=== PATIENT | female | born 1985 | race Asian ===

== ENCOUNTER 2024-08-26 00:08 | Inpatient (IN) ==
[2024-08-26] MEDS ORDERED: OXYTOCIN 30 UNITS/NSS 30 UNITS/500 ML BAG IV PRN (01:01)
[2024-08-26] MEDS ORDERED: LIDOCAINE 1% LOCAL 20 ML VIAL INFIL PRN (01:01)
--- NOTE | 2024-08-26 01:05 | History & Physical Report ---
Date of Service August 26, 2024 Assessment & Plan (1) Elderly primigravida: Plan: Admit to L&D. EFM/toco, labs. Will start pitocin to achieve labor pattern of contractions. She is planning for epidural. History of Present Illness Chief Complaint: ruptured membranes Primary Care Provider: Charly Vernon 38yo @ 40 12/20, came to L&D after rupture of membranes around 11pm. Scant blood. + movement. Occasional contractions. AMA Weekly NST's @ 36 weeks Low Lying Placenta *Re-assess at 32wks * resolved at 32 weeks Staphylococcus on GBS culture-treat with Cephalexin Allergies Allergy/AdvReac Type Severity Reaction Status Date / Time No Known Allergies Allergy Verified 08/22/24 14:32 Home Medications Medication Instructions Recorded Confirmed Type triamcinolone acetonide 0.1 % 1 applic topical BID 10/16/23 08/22/24 History topical cream famotidine [Pepcid] PO 01/08/24 08/22/24 History hydrocortisone topical PRN eczema 01/08/24 08/22/24 History 21-iron fu-folic acid PO 01/08/24 08/22/24 History [ Complete] pyridoxine (vitamin B6) PO 01/15/24 08/22/24 History aspirin 81 mg tablet,delayed 81 mg PO DAILY #60 tabs 02/12/24 08/26/24 Rx release (Darren Low Dose Aspirin) cephalexin 250 mg capsule 250 mg PO QID 5 days #20 caps 08/05/24 08/22/24 Rx vits no.124-ferrous fum 1 tab PO DAILY 08/26/24 08/26/24 History 27 mg iron-folic acid 800 mcg tablet ( Vitamin) Patient History Medical History Acid reflux Dermatitis Surgical History H/O wisdom tooth extraction Family History (Updated 01/08/24 @ 14:13 by Porsche Cao) Mother Pre-diabetes Denies family history of Ovarian cancer Prostate cancer Myocardial infarction Breast cancer Colorectal cancer Social History (Updated 01/08/24 @ 14:14 by Porsche Cao) Smoking Status: Never smoker Second Hand Exposure: No; Do You Dip or Chew Tobacco: No; Hx Alcohol Use: No Hx Substance Use: No Preferred Language: Citizen Of [place] Communication Ability: Effective Advertising Campaign Manager Required: No Beliefs That Will Affect Care: None marital status: marital status details: Sammi (38) [phone] Current Living Situation: Spouse Current Living Situation Comment: lives with spouse, cats-spouse changing litter current occupational status: employed current occupation: professor [employer] How many Children do You have: 0 Other Information That Helps Us Care for You: No Feels Safe at Home: Yes Safety Concerns: Feels Safe At This Time Childhood Exposure to Second-Hand Smoke: Yes Diet: lactose free caffeine: Yes Dental Care, Regularly: Yes Physical Activity Frequency: 1-2 Times per Week Seatbelt Use: always Sunscreen Use: Yes Review of Systems All systems reviewed & are unremarkable except as noted in HPI & below Physical Exam Physical Exam: T Cat 1 [place] irreg SVE 150/-2 Constitutional: WD/WN, vitals as above Respiratory: normal respiratory effort, lungs clear to auscultation no respiratory distress Cardiovascular: Rate/Rhythm: regular rate and regular rhythm Gastrointestinal (Abdomen): Inspection/Auscultation: abdomen normal to inspection Percussion/Palpation: abdomen soft; abdomen nontender Gravid. No s/s chorio or abruption. Skin: no rashes, warm and dry Psychiatric: A+Ox3, euthymic affect Results & Data Vital Signs (Past 12 Hours) Vital Signs Temp Pulse Resp BP 08/26/24 00:20 60 132/77 08/26/24 00:18 36.8 C 18 Coding Level of Care Code None Diagnoses Elderly primigravida O09.519
[2024-08-26] MEDS: LACTATED RINGER'S 1,000 ML IV PRN (01:14)
[2024-08-26] MEDS: OXYTOCIN 30 UNITS/NSS 30 UNITS/500 ML BAG IV PRN (01:30)
[2024-08-26 01:49] LABS: Hematocrit (blood only) 33.4 % (37.0-47.0); Hemoglobin 11.2 g/dl (12.0-16.0); Mean Corpuscular Hemoglobin 30.9 pg (25.0-34.0); Mean Corpuscular Hgb Conc 33.5 g/dL (32.0-36.0); Mean Corpuscular Volume 92.3 fL (80.0-100.0); Mean Platelet Volume 12.9 fL (9.4-12.4); Platelet Count 134 K/uL (130-400); RDW Coefficient of Variation 16.2 % (11.5-14.5); RDW Standard Deviation 54.5 fL (36.4-46.3); Red Blood Count 3.62 M/uL (4.20-5.40); White Blood Count 7.78 K/ul (4.8-10.8)
[2024-08-26] MEDS ORDERED: ePHEDrine sulfate 50 MG/ML AMP IV PRN ×2 (05:06→20:51)
[2024-08-26] MEDS ORDERED: NALBUPHINE HCL INJ 10 MG/ML AMP IV PRN ×2 (05:06→20:51)
[2024-08-26] MEDS ORDERED: BUPIVACAINE 0.25% PF 30 ML VIAL EPI PRN (05:06)
[2024-08-26] MEDS ORDERED: NALOXONE HCL 0.4 MG/1 ML VIAL/CARP IV PRN ×2 (05:06→20:51)
[2024-08-26] MEDS ORDERED: SODIUM CHLORIDE 0.9% PF INJ 10 ML VIAL EPI PRN (05:06)
[2024-08-26] MEDS ORDERED: diphenhydrAMINE 50 MG/ML VIAL IV PRN ×2 (05:06→20:51)
[2024-08-26] MEDS ORDERED: LIDOCAINE 2% MPF LOCAL 5 ML VIAL EPI PRN (05:06)
[2024-08-26] MEDS ORDERED: ROPIVACAINE 0.5% PF 5 MG/ML 20 ML VIAL EPI PRN (05:06)
[2024-08-26] MEDS ORDERED: fentaNYL citrate PF 100 MCG/2 ML VIAL EPI PRN (05:06)
[2024-08-26] MEDS ORDERED: NALOXONE HCL 1 MG in SODIUM CHLORIDE 0.9% 1,000 ML IV PRN ×2 (05:06→20:51)
--- NOTE | 2024-08-26 05:06 | Anesthesiology Consultation ---
Date of Service August 26, 2024 Assessment & Plan (1) Encounter for pre-operative examination: Chart Review Chart Review: Patient NOT seen in Pre Admission Testing and Acceptable Risk for Labor Epidural Consults Requested none History Height/Weight Height: 5 ft Weight: 60.781 kg Allergies Allergy/AdvReac Type Severity Reaction Status Date / Time No Known Allergies Allergy Verified 08/22/24 14:32 Medications Home Medications Medication Instructions Recorded Confirmed Last Taken aspirin 81 mg tablet,delayed 81 mg PO DAILY #60 tabs 02/12/24 08/26/24 Unknown release (Darren Low Dose Aspirin) vits no.124-ferrous fum 1 tab PO DAILY 08/26/24 08/26/24 Unknown 27 mg iron-folic acid 800 mcg tablet ( Vitamin) Active Medications Generic Name Dose Route Start Last Admin Trade Name Freq PRN Reason Stop Dose Admin Lactated Ringer's 1,000 mls @ 125 mls/hr 08/26/24 01:01 08/26/24 04:30 Lr IV 08/28/24 01:00 999 mls/hr .Q8H PRN Infusion L&D Protocol Protocol Oxytocin 30 units in 500 mls @ 7 mls/hr 08/26/24 01:01 08/26/24 04:05 Pitocin 30 Units/Nss IV 08/28/24 01:00 0.42 units/hr .Q24H PRN 7 mls/hr Labor Induction/Augmentation Titration Protocol 0.42 UNITS/HR Past Medical History Medical History Acid reflux Dermatitis Past Family History Family History Mother Pre-diabetes Denies family history of Ovarian cancer Prostate cancer Myocardial infarction Breast cancer Colorectal cancer Past Surgical History Surgical History H/O wisdom tooth extraction Social History Smoking Status: Never smoker Do You Dip or Chew Tobacco: No Hx Alcohol Use: No Hx Substance Use: No Physical Exam Vital Signs Last Vital Signs Temp 98.2 F 08/26/24 04:00 Pulse 63 08/26/24 05:00 Resp 18 08/26/24 00:18 BP 141/78 H 08/26/24 04:53 Pulse Ox 97 08/26/24 05:00 Testing Laboratory Results 08/26/24 01:28
[2024-08-26] MEDS: fentANYL 2 MCG/ML BUPIVacaine 0.125%-NSS 100ML BAG EPI PRN (05:31)
[2024-08-26] MEDS: BUPIVACAINE 0.25% PF 30 ML VIAL EPI STA (05:35)
[2024-08-26] MEDS: LIDOCAINE 2%/EPINEPHRINE 1:200,000 20 ML PF EPI STA (05:35)
--- NOTE | 2024-08-26 06:51 | Obstetrical Progress Note ---
Date of Service August 26, 2024 Assessment & Plan Admission and Anticipated Discharge Date Admission Date: August 26, 2024 Subjective Patient is a 38yo who came in last night 08/25/24 around 11pm for rupture of membranes. GBS-, blood type A+ Currently 2.0/50%/-2 Results & Data Vital Signs (Past 12 Hours) Vital Signs Temp Pulse Resp BP Pulse Ox 08/26/24 06:47 94 08/26/24 06:47 70 08/26/24 06:45 94 08/26/24 06:45 69 08/26/24 06:40 94 08/26/24 06:40 67 08/26/24 06:35 95 08/26/24 06:35 64 08/26/24 06:33 94 08/26/24 06:33 86 08/26/24 06:30 96 08/26/24 06:30 70 08/26/24 06:25 95 08/26/24 06:25 68 08/26/24 06:20 96 08/26/24 06:20 72 08/26/24 06:15 95 08/26/24 06:15 71 08/26/24 06:12 75 08/26/24 06:12 119/75 08/26/24 06:11 94 08/26/24 06:11 65 08/26/24 06:10 95 08/26/24 06:10 70 08/26/24 06:05 96 08/26/24 06:05 67 08/26/24 06:00 18 08/26/24 06:00 36.6 C 18 08/26/24 06:00 96 08/26/24 06:00 68 08/26/24 05:58 94 08/26/24 05:58 66 08/26/24 05:57 81 08/26/24 05:57 119/66 08/26/24 05:55 96 08/26/24 05:55 67 08/26/24 05:50 95 08/26/24 05:50 69 08/26/24 05:45 97 08/26/24 05:45 67 08/26/24 05:41 71 08/26/24 05:41 120/74 08/26/24 05:40 96 08/26/24 05:40 72 08/26/24 05:39 70 08/26/24 05:39 119/73 08/26/24 05:37 76 08/26/24 05:37 111/69 08/26/24 05:35 96 08/26/24 05:35 74 08/26/24 05:35 115/67 08/26/24 05:33 73 08/26/24 05:33 122/71 08/26/24 05:32 71 08/26/24 05:32 119/69 08/26/24 05:30 97 08/26/24 05:30 73 08/26/24 05:29 83 08/26/24 05:29 134/79 08/26/24 05:25 97 08/26/24 05:25 77 08/26/24 05:25 136/80 08/26/24 05:20 97 08/26/24 05:20 74 08/26/24 05:19 71 08/26/24 05:19 146/91 H 08/26/24 05:15 97 08/26/24 05:15 65 08/26/24 05:10 97 08/26/24 05:10 66 08/26/24 05:05 96 08/26/24 05:05 66 08/26/24 05:00 97 08/26/24 05:00 63 08/26/24 04:55 97 08/26/24 04:55 73 08/26/24 04:53 65 08/26/24 04:53 141/78 H 08/26/24 04:00 36.8 C 08/26/24 03:33 67 08/26/24 03:33 122/75 08/26/24 02:33 74 08/26/24 02:33 123/72 08/26/24 02:00 36.7 C 08/26/24 01:33 64 08/26/24 01:33 128/70 08/26/24 00:20 60 132/77 08/26/24 00:18 36.8 C 18
[2024-08-26] MEDS: fentaNYL citrate PF 100 MCG/2 ML VIAL EPI STA (07:06)
[2024-08-26] MEDS: SODIUM CHLORIDE 0.9% PF INJ 10 ML VIAL EPI STA (07:06)
--- NOTE | 2024-08-26 07:28 | Labor Progress Brief Note ---
Date of Service August 26, 2024 Subjective Comfortable with epidural. FHT Cat 1 [place] Q 2 SVE 4/50/-2 AROM forebag, thick meconium Continue pitocin. Assessment & Plan Admission and Anticipated Discharge Date Admission Date: August 26, 2024 Results & Data Vital Signs (Past 12 Hours) Vital Signs Temp Pulse Resp BP Pulse Ox 08/26/24 07:25 74 08/26/24 07:25 111/68 08/26/24 07:25 96 08/26/24 07:25 69 08/26/24 07:20 97 08/26/24 07:20 72 08/26/24 07:15 96 08/26/24 07:15 75 08/26/24 07:10 96 08/26/24 07:10 71 08/26/24 07:05 95 08/26/24 07:05 85 08/26/24 07:00 18 08/26/24 07:00 18 08/26/24 07:00 95 08/26/24 07:00 69 08/26/24 06:55 96 08/26/24 06:55 69 08/26/24 06:54 71 08/26/24 06:54 121/71 08/26/24 06:50 94 08/26/24 06:50 90 08/26/24 06:47 94 08/26/24 06:47 70 08/26/24 06:45 94 08/26/24 06:45 69 08/26/24 06:40 94 08/26/24 06:40 67 08/26/24 06:35 95 08/26/24 06:35 64 08/26/24 06:33 94 08/26/24 06:33 86 08/26/24 06:30 96 08/26/24 06:30 70 08/26/24 06:25 95 08/26/24 06:25 68 08/26/24 06:20 96 08/26/24 06:20 72 08/26/24 06:15 95 08/26/24 06:15 71 08/26/24 06:12 75 08/26/24 06:12 119/75 08/26/24 06:11 94 08/26/24 06:11 65 08/26/24 06:10 95 08/26/24 06:10 70 08/26/24 06:05 96 08/26/24 06:05 67 08/26/24 06:00 18 08/26/24 06:00 36.6 C 18 08/26/24 06:00 96 08/26/24 06:00 68 08/26/24 05:58 94 08/26/24 05:58 66 08/26/24 05:57 81 08/26/24 05:57 119/66 08/26/24 05:55 96 08/26/24 05:55 67 08/26/24 05:50 95 08/26/24 05:50 69 08/26/24 05:45 97 08/26/24 05:45 67 08/26/24 05:41 71 08/26/24 05:41 120/74 08/26/24 05:40 96 08/26/24 05:40 72 08/26/24 05:39 70 08/26/24 05:39 119/73 08/26/24 05:37 76 08/26/24 05:37 111/69 08/26/24 05:35 96 08/26/24 05:35 74 08/26/24 05:35 115/67 08/26/24 05:33 73 08/26/24 05:33 122/71 08/26/24 05:32 71 08/26/24 05:32 119/69 08/26/24 05:30 97 08/26/24 05:30 73 08/26/24 05:29 83 08/26/24 05:29 134/79 08/26/24 05:25 97 08/26/24 05:25 77 08/26/24 05:25 136/80 08/26/24 05:20 97 08/26/24 05:20 74 08/26/24 05:19 71 08/26/24 05:19 146/91 H 08/26/24 05:15 97 08/26/24 05:15 65 08/26/24 05:10 97 08/26/24 05:10 66 08/26/24 05:05 96 08/26/24 05:05 66 08/26/24 05:00 97 08/26/24 05:00 63 08/26/24 04:55 97 08/26/24 04:55 73 08/26/24 04:53 65 08/26/24 04:53 141/78 H 08/26/24 04:00 36.8 C 08/26/24 03:33 67 08/26/24 03:33 122/75 08/26/24 02:33 74 08/26/24 02:33 123/72 08/26/24 02:00 36.7 C 08/26/24 01:33 64 08/26/24 01:33 128/70 08/26/24 00:20 60 132/77 08/26/24 00:18 36.8 C 18 Coding Level of Care Code None
[2024-08-26] MEDS: LIDOCAINE 2%/EPINEPHRINE 1:200,000 20 ML PF ONE (16:51)
[2024-08-26] MEDS: fentANYL 2 MCG/ML BUPIVacaine 0.125%-NSS 100ML BAG ONE (16:51)
[2024-08-26] MEDS: BUPIVACAINE 0.25% PF 30 ML VIAL ONE (16:51)
--- NOTE | 2024-08-26 20:28 | Labor Progress Brief Note ---
Date of Service August 26, 2024 Subjective Presented with bedside to discuss plan. Cervix unchanged based on nurse exam. Has been 8 cm dilated since approximately 1:30 PM this afternoon. Assessment & Plan (1) Elderly primigravida: Plan: Cervix unchanged since approximately 1:30 PM this afternoon. Reviewed the finding and diagnosis of failure to progress in labor. I recommended that we proceed with a primary which was reviewed in detail. We discussed risks and benefits of the procedure. We discussed the increased risks of infection, bleeding and blood clots specifically related to laboring into a C- section. Consent forms reviewed and signed all questions answered. Trimester: third trimester Qualified Code(s): O09.513 - Supervision of elderly primigravida, third trimester (2) Failure to progress in first stage of labor: Admission and Anticipated Discharge Date Admission Date: August 26, 2024 Physical Exam Genitourinary: OB Exam Abdomen: + fundal height Manual OB Exam: + cervical dilation 8 cm, + cervical effacement 80%, + station 0 and + amniotic fluid meconium OB Exam Monitor Tracing: + external FHT monitor used, + external uterine monitor used and + category I Results & Data Vital Signs (Past 12 Hours) Vital Signs Temp Pulse Resp BP Pulse Ox 08/26/24 20:25 96 08/26/24 20:25 93 H 08/26/24 20:20 96 08/26/24 20:20 84 08/26/24 20:15 93 08/26/24 20:15 80 08/26/24 20:10 93 08/26/24 20:10 86 08/26/24 20:05 93 08/26/24 20:05 96 H 08/26/24 20:00 94 08/26/24 20:00 97 H 08/26/24 19:55 95 08/26/24 19:55 103 H 08/26/24 19:50 95 08/26/24 19:50 94 H 08/26/24 19:45 94 08/26/24 19:45 93 H 08/26/24 19:40 95 08/26/24 19:40 102 H 08/26/24 19:35 94 08/26/24 19:35 106 H 08/26/24 19:30 95 08/26/24 19:30 118 H 08/26/24 19:25 95 08/26/24 19:25 93 H 08/26/24 19:24 110 H 08/26/24 19:24 114/79 08/26/24 19:20 93 08/26/24 19:20 100 H 08/26/24 19:15 95 08/26/24 19:15 96 H 08/26/24 19:10 37.0 C 16 08/26/24 19:10 16 08/26/24 19:10 37.0 C 16 08/26/24 19:10 96 08/26/24 19:10 86 08/26/24 19:05 96 08/26/24 19:05 71 08/26/24 19:00 16 08/26/24 19:00 16 08/26/24 19:00 96 08/26/24 19:00 79 08/26/24 18:55 95 08/26/24 18:55 73 08/26/24 18:53 77 08/26/24 18:53 139/77 08/26/24 18:50 96 08/26/24 18:50 73 08/26/24 18:45 96 08/26/24 18:45 77 08/26/24 18:40 95 08/26/24 18:40 77 08/26/24 18:35 96 08/26/24 18:35 72 08/26/24 18:30 95 08/26/24 18:30 77 08/26/24 18:25 96 08/26/24 18:25 84 08/26/24 18:24 84 08/26/24 18:24 112/73 08/26/24 18:20 97 08/26/24 18:20 78 08/26/24 18:15 96 08/26/24 18:15 71 08/26/24 18:10 96 08/26/24 18:10 79 08/26/24 18:05 95 08/26/24 18:05 72 08/26/24 18:00 97 08/26/24 18:00 88 08/26/24 17:55 96 08/26/24 17:55 77 08/26/24 17:54 80 08/26/24 17:54 116/70 08/26/24 17:50 96 08/26/24 17:50 73 08/26/24 17:45 95 08/26/24 17:45 66 08/26/24 17:40 95 08/26/24 17:40 71 08/26/24 17:35 97 08/26/24 17:35 66 08/26/24 17:30 96 08/26/24 17:30 79 08/26/24 17:25 97 08/26/24 17:25 73 08/26/24 17:24 71 08/26/24 17:24 127/68 08/26/24 17:20 97 08/26/24 17:20 79 08/26/24 17:15 94 08/26/24 17:15 89 08/26/24 17:10 96 08/26/24 17:10 69 08/26/24 17:05 98 08/26/24 17:05 74 08/26/24 17:00 95 08/26/24 17:00 79 08/26/24 16:55 96 08/26/24 16:55 73 08/26/24 16:53 78 08/26/24 16:53 143/87 H 08/26/24 16:50 95 08/26/24 16:50 75 08/26/24 16:45 96 08/26/24 16:45 72 08/26/24 16:40 94 08/26/24 16:40 73 08/26/24 16:35 95 08/26/24 16:35 72 08/26/24 16:30 94 08/26/24 16:30 75 08/26/24 16:25 96 08/26/24 16:25 74 08/26/24 16:24 74 08/26/24 16:24 144/83 H 08/26/24 16:20 96 08/26/24 16:20 76 08/26/24 16:15 96 08/26/24 16:15 86 08/26/24 16:10 94 08/26/24 16:10 71 08/26/24 16:05 96 08/26/24 16:05 77 08/26/24 16:00 97 08/26/24 16:00 83 08/26/24 15:55 95 08/26/24 15:55 78 08/26/24 15:54 75 08/26/24 15:54 129/78 08/26/24 15:50 97 08/26/24 15:50 84 08/26/24 15:48 36.9 C 08/26/24 15:45 96 08/26/24 15:45 80 08/26/24 15:40 95 08/26/24 15:40 83 08/26/24 15:35 94 08/26/24 15:35 73 08/26/24 15:30 94 08/26/24 15:30 74 08/26/24 15:25 76 08/26/24 15:25 143/84 H 08/26/24 15:25 93 08/26/24 15:25 74 08/26/24 15:20 95 08/26/24 15:20 75 08/26/24 15:15 97 08/26/24 15:15 84 08/26/24 15:10 97 08/26/24 15:10 85 08/26/24 15:05 97 08/26/24 15:05 80 08/26/24 15:00 20 08/26/24 15:00 20 08/26/24 15:00 96 08/26/24 15:00 82 08/26/24 14:55 95 08/26/24 14:55 90 08/26/24 14:54 76 08/26/24 14:54 130/79 08/26/24 14:54 81 08/26/24 14:54 129/72 08/26/24 14:50 93 08/26/24 14:50 79 08/26/24 14:45 93 08/26/24 14:45 81 08/26/24 14:40 93 08/26/24 14:40 77 08/26/24 14:35 94 08/26/24 14:35 79 08/26/24 14:31 94 08/26/24 14:31 76 08/26/24 14:30 95 08/26/24 14:30 83 08/26/24 14:25 93 08/26/24 14:25 77 08/26/24 14:23 77 08/26/24 14:23 123/69 08/26/24 14:20 95 08/26/24 14:20 84 08/26/24 14:15 94 08/26/24 14:15 77 08/26/24 14:10 94 08/26/24 14:10 77 08/26/24 14:07 94 08/26/24 14:07 78 10/14/24 14:05 96 08/26/24 14:05 75 08/26/24 14:00 94 08/26/24 14:00 71 08/26/24 13:55 94 08/26/24 13:55 79 08/26/24 13:54 93 08/26/24 13:54 78 08/26/24 13:50 95 08/26/24 13:50 72 08/26/24 13:45 97 08/26/24 13:45 76 08/26/24 13:40 94 08/26/24 13:40 80 08/26/24 13:35 93 08/26/24 13:35 79 08/26/24 13:34 94 08/26/24 13:34 74 08/26/24 13:30 95 08/26/24 13:30 78 08/26/24 13:28 94 08/26/24 13:28 79 08/26/24 13:25 97 08/26/24 13:25 77 08/26/24 13:23 78 08/26/24 13:23 133/76 08/26/24 13:20 96 08/26/24 13:20 91 H 08/26/24 13:15 94 08/26/24 13:15 82 08/26/24 13:12 94 08/26/24 13:12 76 08/26/24 13:10 95 08/26/24 13:10 78 08/26/24 13:05 95 08/26/24 13:05 77 08/26/24 13:02 94 08/26/24 13:02 81 08/26/24 13:00 95 08/26/24 13:00 74 08/26/24 12:55 95 08/26/24 12:55 82 08/26/24 12:54 88 08/26/24 12:54 123/83 08/26/24 12:50 96 08/26/24 12:50 80 08/26/24 12:48 94 08/26/24 12:48 92 H 08/26/24 12:45 95 08/26/24 12:45 102 H 08/26/24 12:44 37.1 C 08/26/24 12:40 95 08/26/24 12:40 80 08/26/24 12:37 94 08/26/24 12:37 76 08/26/24 12:35 95 08/26/24 12:35 69 08/26/24 12:31 94 08/26/24 12:31 76 08/26/24 12:30 95 08/26/24 12:30 72 08/26/24 12:25 94 08/26/24 12:25 71 08/26/24 12:25 95 08/26/24 12:25 74 08/26/24 12:23 68 08/26/24 12:23 130/78 08/26/24 12:20 94 08/26/24 12:20 73 08/26/24 12:20 95 08/26/24 12:20 69 08/26/24 12:15 94 08/26/24 12:15 70 08/26/24 12:15 95 08/26/24 12:15 72 08/26/24 12:10 95 08/26/24 12:10 65 08/26/24 12:10 94 08/26/24 12:10 68 08/26/24 12:05 95 08/26/24 12:05 69 08/26/24 12:03 94 08/26/24 12:03 76 08/26/24 12:00 94 08/26/24 12:00 76 08/26/24 11:56 94 08/26/24 11:56 67 08/26/24 11:55 94 08/26/24 11:55 71 08/26/24 11:54 69 08/26/24 11:54 121/78 08/26/24 11:50 94 08/26/24 11:50 70 08/26/24 11:50 95 08/26/24 11:50 72 08/26/24 11:45 94 08/26/24 11:45 73 08/26/24 11:45 95 08/26/24 11:45 70 08/26/24 11:40 94 08/26/24 11:40 69 08/26/24 11:36 94 08/26/24 11:36 64 08/26/24 11:35 95 08/26/24 11:35 70 08/26/24 11:30 94 08/26/24 11:30 69 08/26/24 11:26 94 08/26/24 11:26 68 08/26/24 11:25 95 08/26/24 11:25 70 08/26/24 11:24 67 08/26/24 11:24 130/79 08/26/24 11:20 94 08/26/24 11:20 69 08/26/24 11:19 94 08/26/24 11:19 71 08/26/24 11:15 18 08/26/24 11:15 18 08/26/24 11:15 96 08/26/24 11:15 74 08/26/24 11:10 94 08/26/24 11:10 63 08/26/24 11:10 95 08/26/24 11:10 63 08/26/24 11:05 95 08/26/24 11:05 69 08/26/24 11:00 96 08/26/24 11:00 70 08/26/24 10:57 16 08/26/24 10:57 16 08/26/24 10:57 16 08/26/24 10:57 16 08/26/24 10:55 95 08/26/24 10:55 71 08/26/24 10:54 69 08/26/24 10:54 134/83 08/26/24 10:50 96 08/26/24 10:50 72 08/26/24 10:45 96 08/26/24 10:45 68 08/26/24 10:40 95 08/26/24 10:40 76 08/26/24 10:35 94 08/26/24 10:35 81 08/26/24 10:35 95 08/26/24 10:35 84 08/26/24 10:30 94 08/26/24 10:30 77 08/26/24 10:29 94 08/26/24 10:29 78 08/26/24 10:25 95 08/26/24 10:25 73 08/26/24 10:24 94 08/26/24 10:24 76 08/26/24 10:23 75 08/26/24 10:23 103/65 08/26/24 10:20 95 08/26/24 10:20 72 08/26/24 10:19 94 08/26/24 10:19 80 08/26/24 10:15 94 08/26/24 10:15 77 08/26/24 10:13 94 08/26/24 10:13 74 08/26/24 10:10 95 08/26/24 10:10 76 08/26/24 10:05 95 08/26/24 10:05 80 08/26/24 10:00 95 08/26/24 10:00 74 08/26/24 09:57 94 08/26/24 09:57 75 08/26/24 09:55 95 08/26/24 09:55 76 08/26/24 09:55 115/65 08/26/24 09:50 96 08/26/24 09:50 71 08/26/24 09:45 96 08/26/24 09:45 72 08/26/24 09:42 94 08/26/24 09:42 75 08/26/24 09:40 96 08/26/24 09:40 74 08/26/24 09:35 97 08/26/24 09:35 69 08/26/24 09:30 16 08/26/24 09:30 16 08/26/24 09:30 95 08/26/24 09:30 71 08/26/24 09:27 93 08/26/24 09:27 81 08/26/24 09:25 96 08/26/24 09:25 76 08/26/24 09:25 138/80 08/26/24 09:20 94 08/26/24 09:20 77 08/26/24 09:19 94 08/26/24 09:19 72 08/26/24 09:15 95 08/26/24 09:15 69 08/26/24 09:13 94 08/26/24 09:13 71 08/26/24 09:10 95 08/26/24 09:10 69 08/26/24 09:06 94 08/26/24 09:06 68 08/26/24 09:05 96 08/26/24 09:05 69 08/26/24 09:00 95 08/26/24 09:00 67 08/26/24 08:55 96 08/26/24 08:55 67 08/26/24 08:53 74 08/26/24 08:53 130/84 08/26/24 08:50 97 08/26/24 08:50 76 08/26/24 08:45 98 08/26/24 08:45 69 08/26/24 08:40 96 08/26/24 08:40 74 08/26/24 08:35 97 08/26/24 08:35 76 08/26/24 08:30 96 08/26/24 08:30 80 08/26/24 08:29 94 08/26/24 08:29 75 Coding Level of Care Code None Diagnoses Primigravida of advanced maternal age in third trimester O09.513 Trimester: third trimester Failure to progress in first stage of labor O63.0
[2024-08-26] MEDS ORDERED: MoRPHine SULFATE PF 1 MG/ML 10 ML AMP/VIAL ONE (20:38)
[2024-08-26] MEDS: CITRIC ACID/SODIUM CITRATE 15 ML UDC PO SCH (20:50)
[2024-08-26] MEDS ORDERED: MoRPHine SULFATE 2 MG/ML CARP IV PRN (20:51)
[2024-08-26] MEDS: ceFAZolin 2000MG 2,000 MG/15 ML SYR IV SCH (20:51)
[2024-08-26] MEDS ORDERED: PROMETHAZINE 6.25 MG/50.25 ML BAG IV PRN (20:51)
[2024-08-26] MEDS: AZITHROMYCIN 500 MG in DEXTROSE 5% 250 ML IV SCH (20:51)
[2024-08-26] MEDS ORDERED: NALOXONE HCL 0.08 MG in SYRINGE 1.8 ML IV PRN (20:51)
[2024-08-26] MEDS ORDERED: oxyCODONE HCL IR 5 MG TAB (IMMEDIATE RELEASE) PO PRN (20:51)
[2024-08-26] MEDS ORDERED: DC INTRASPINAL MORPHINE SCH (21:00)
[2024-08-26] MEDS ORDERED: NO NARCOTICS OR SEDATIVES SCH (21:00)
[2024-08-26] MEDS ORDERED: METHYLERGONOVINE MALEATE 0.2 MG/ML AMP ONE (21:22)
[2024-08-26] MEDS ORDERED: PHENYLEPHRINE 100MCG/ML 10ML SYR IV ONE (21:23)
[2024-08-26] MEDS ORDERED: ONDANSETRON INJ 2 MG/ML 2 ML VIAL ONE (21:23)
[2024-08-26] MEDS ORDERED: METOCLOPRAMIDE HCL INJ 5 MG/ML 2 ML VIAL ONE (21:23)
[2024-08-26] MEDS ORDERED: DEXAMETHASONE SOD INJ 4 MG/ML VIAL ONE (21:23)
[2024-08-26] MEDS ORDERED: LIDOCAINE 2%/EPINEPHRINE 1:200,000 20 ML PF ONE (21:23)
[2024-08-26] MEDS ORDERED: SODIUM CHLORIDE 0.9% PF INJ 10 ML VIAL ONE (21:23)
[2024-08-26] MEDS ORDERED: MEPERIDINE HCL 25 MG/ML CARP/VIAL ONE (21:33)
[2024-08-26] MEDS ORDERED: OXYTOCIN 10 UNITS/ML VIAL ONE (21:51)
--- NOTE | 2024-08-26 22:13 | Anesthesia Procedure Note ---
Date of Service August 26, 2024 Anesthesia Post Epidural Note Vital Signs Vital Signs: Temp Pulse Resp BP Pulse Ox 37.0 C 91 H 16 129/78 94 08/26/24 19:10 08/26/24 22:07 08/26/24 19:10 08/26/24 22:06 08/26/24 22:07 Pain Intensity Abdomen: Pain Intensity: 0 Notes Mental Status: alert / awake / arousable and participated in evaluation Nausea / Vomiting: adequately controlled Pain: adequately controlled Airway Patency, RR, SpO2: stable & adequate BP & HR: stable & adequate Hydration State: stable & adequate Neuraxial Anesthesia: was administered and sensory block is resolving Anesthetic Complications: no major complications apparent Epidural: Removed without complications and With tip intact
[2024-08-26] MEDS: MoRPHine SULFATE PF 1 MG/ML 10 ML AMP/VIAL EPI ONE (22:30)
[2024-08-26] MEDS: SODIUM CHLORIDE 0.9% 1,000 ML IV SCH (22:30)
--- NOTE | 2024-08-26 23:22 | Operative Report ---
Post Operative Report Pre & Post Diagnosis Operation Date: 08/26/24 20:25 Pre-Op Diagnosis: Failure to progress. Post-Op Diagnosis: Failure to progress. I identified the patient and participated in the time-out.: Yes Procedure Operation Date: 08/26/24 20:25 Actual Procedures p Section in LD - Alfredo Harrington MD Surgeon Alfredo Harrington MD [employer] Nursing staff Quantitative Blood Loss (QBL) See chart Findings Consistent with Post-Op Diagnosis Normal-appearing uterus, fallopian tubes and ovaries. vigorous soon after delivery with weight and Apgars pending. Specimens None Complications None Description of Procedure Patient was taken the operating room after consent was ensured. Upon presentation she was properly identified. Anesthesia obtained and patient prepped and draped in normal sterile fashion. Preprocedural timeout was per formed. A Pfannenstiel incision was made with a knife. This was carried down to underlying fascia with the Bovie and blunt dissection. The fascia was nicked at the midline with a knife and extended laterally with pickups and Kim scissors. Abdominal cavity was entered bluntly and placed on stretch to provide adequate room for delivery. A low transverse uterine incision was made with a knife. Head of the was delivered through the hysterotomy followed by body and shoulders. noted to be vigorous at time of delivery and a 30 second delayed cord clamping was initiated after which the cord was double clamped and cut. Baby taken to the waiting nursery staff. Attention was turned to delivery of the placenta which delivered intact with three-vessel cord gentle cord traction. Uterus was exteriorized and several passes were made to remove any remaining membranes with a dry lap. Hysterotomy was reapproximated with 0 Vicryl continuous running lock stitch with a second im bricating layer performed. Methergine injected directly into the uterus due to lower uterine segment atony. Posterior cul-de-sac cleaned of clots and debris's. Uterus returned maternal abdomen and right left paracolic gutters cleaned of clots and debris's. Hysterotomy remained hemostatic. Subcutaneous fascia and muscle layers inspected noted be hemostatic. Fascia was reapproximated 0 Vicryl continuous running stitch. Subcutaneous layer reapproximated 2 layers using 2-0 plain. Skin reapproximated with 3-0 Vicryl and continuous subcuticular stitch. Dermabond placed on top. Both mother and in stable condition at the completion of the case. Needle sponge and instrument counts correct at the completion of the case I attest to the content of the Intraoperative Record and any orders documented therein. Any exceptions are noted below. OB Procedure Charges 70417
[2024-08-26] MEDS ORDERED: SENNA 8.6 MG TAB PO PRN (23:26)
[2024-08-26] MEDS ORDERED: HYDROCORTISONE ACETATE 25 MG SUPP PR PRN (23:26)
[2024-08-26] MEDS ORDERED: MAGNESIUM HYDROXIDE SUSP 30 ML UDC PO PRN (23:26)
[2024-08-26] MEDS ORDERED: CALCIUM CARBONATE 500 MG CHEWABLE TAB PO PRN (23:26)
[2024-08-26] MEDS ORDERED: BENZOCAINE 20% SPRY 85 APPLN/85 GM CAN EXT PRN (23:26)
[2024-08-26] MEDS: ACETAMINOPHEN 325 MG TAB ONE (23:43)
[2024-08-26] MEDS: KETOROLAC 30 MG/ML VIAL IV SCH (23:44)
[2024-08-26] MEDS: DIPHTHER/TETAN/PERTUS Vaccine (Tdap, Adol/Adult) 0.5mL IM ONE (23:45)
[2024-08-26] MEDS: OXYTOCIN 20 UNITS/LR 1,002 ML IV SCH (23:52)
[2024-08-27] MEDS: ACETAMINOPHEN 325 MG TAB PO SCH (05:35)
[2024-08-27] MEDS: LACTATED RINGER'S 500 ML IV PRN (06:47)
--- NOTE | 2024-08-27 06:57 | Anesthesiology Progress Note ---
Date of Service August 27, 2024 Anesthesia Post Procedure Vital Signs Vital Signs: Temp Pulse Resp BP BP Pulse Ox O2 Del Method 08/27/24 05:30 36.8 C 16 115/72 94 Room Air 08/27/24 03:00 96 08/27/24 02:00 96 08/27/24 01:00 36.7 C 18 117/73 96 Room Air 08/27/24 01:00 18 96 08/27/24 00:15 36.7 C 16 08/27/24 00:15 74 127/66 08/27/24 00:12 78 95 08/27/24 00:07 78 93 08/27/24 00:02 78 96 08/26/24 23:57 94 08/26/24 23:57 81 08/26/24 23:52 94 08/26/24 23:52 79 08/26/24 23:47 95 08/26/24 23:47 99 H 08/26/24 23:45 36.8 C 16 08/26/24 23:45 90 08/26/24 23:45 137/68 08/26/24 23:42 93 08/26/24 23:42 77 08/26/24 23:37 94 08/26/24 23:37 85 08/26/24 23:32 95 08/26/24 23:32 87 08/26/24 23:27 95 08/26/24 23:27 78 08/26/24 23:22 93 08/26/24 23:22 86 08/26/24 23:17 95 08/26/24 23:17 76 08/26/24 23:15 36.8 C 16 08/26/24 23:15 36.8 C 16 08/26/24 23:15 77 08/26/24 23:15 144/82 H 08/26/24 23:12 92 08/26/24 23:12 78 08/26/24 23:07 93 08/26/24 23:07 79 08/26/24 23:05 37.0 C 16 08/26/24 23:05 80 08/26/24 23:05 122/84 08/26/24 23:02 92 08/26/24 23:02 76 08/26/24 22:57 94 08/26/24 22:57 76 08/26/24 22:55 37.0 C 16 08/26/24 22:55 80 08/26/24 22:55 129/80 08/26/24 22:52 94 08/26/24 22:52 82 08/26/24 22:47 94 08/26/24 22:47 80 08/26/24 22:45 37.0 C 16 08/26/24 22:45 83 08/26/24 22:45 128/78 08/26/24 22:42 93 08/26/24 22:42 82 08/26/24 22:37 93 08/26/24 22:37 83 08/26/24 22:35 37.0 C 16 08/26/24 22:35 79 08/26/24 22:35 119/73 08/26/24 22:32 92 08/26/24 22:32 82 08/26/24 22:27 96 08/26/24 22:27 86 08/26/24 22:25 37.0 C 16 08/26/24 22:25 82 08/26/24 22:25 123/80 08/26/24 22:22 91 08/26/24 22:22 84 08/26/24 22:17 96 08/26/24 22:17 89 08/26/24 22:15 37.0 C 16 08/26/24 22:15 88 08/26/24 22:15 121/79 08/26/24 22:12 93 08/26/24 22:12 88 08/26/24 22:07 94 08/26/24 22:07 91 H 08/26/24 22:06 91 H 08/26/24 22:06 129/78 08/26/24 20:53 88 08/26/24 20:53 137/81 08/26/24 20:50 96 08/26/24 20:50 84 08/26/24 20:45 95 08/26/24 20:45 86 08/26/24 20:40 95 08/26/24 20:40 78 08/26/24 20:35 95 08/26/24 20:35 83 08/26/24 20:30 95 08/26/24 20:30 84 08/26/24 20:25 96 08/26/24 20:25 93 H 08/26/24 20:20 96 08/26/24 20:20 84 08/26/24 20:15 93 08/26/24 20:15 80 08/26/24 20:10 93 08/26/24 20:10 86 08/26/24 20:05 93 08/26/24 20:05 96 H 08/26/24 20:00 94 08/26/24 20:00 97 H 08/26/24 19:55 95 08/26/24 19:55 103 H 08/26/24 19:50 95 08/26/24 19:50 94 H 08/26/24 19:45 94 08/26/24 19:45 93 H 08/26/24 19:40 95 08/26/24 19:40 102 H 08/26/24 19:35 94 08/26/24 19:35 106 H 08/26/24 19:30 95 08/26/24 19:30 118 H 08/26/24 19:25 95 08/26/24 19:25 93 H 08/26/24 19:24 110 H 08/26/24 19:24 114/79 08/26/24 19:20 93 08/26/24 19:20 100 H 08/26/24 19:15 95 08/26/24 19:15 96 H 08/26/24 19:10 37.0 C 16 08/26/24 19:10 16 08/26/24 19:10 37.0 C 16 08/26/24 19:10 96 08/26/24 19:10 86 08/26/24 19:05 96 08/26/24 19:05 71 08/26/24 19:00 16 08/26/24 19:00 16 08/26/24 19:00 96 08/26/24 19:00 79 08/26/24 18:55 95 08/26/24 18:55 73 08/26/24 18:53 77 08/26/24 18:53 139/77 08/26/24 18:50 96 08/26/24 18:50 73 08/26/24 18:45 96 08/26/24 18:45 77 08/26/24 18:40 95 08/26/24 18:40 77 08/26/24 18:35 96 08/26/24 18:35 72 08/26/24 18:30 95 08/26/24 18:30 77 08/26/24 18:25 96 08/26/24 18:25 84 08/26/24 18:24 84 08/26/24 18:24 112/73 08/26/24 18:20 97 08/26/24 18:20 78 08/26/24 18:15 96 08/26/24 18:15 71 08/26/24 18:10 96 08/26/24 18:10 79 08/26/24 18:05 95 08/26/24 18:05 72 08/26/24 18:00 97 08/26/24 18:00 88 08/26/24 17:55 96 08/26/24 17:55 77 08/26/24 17:54 80 08/26/24 17:54 116/70 08/26/24 17:50 96 08/26/24 17:50 73 08/26/24 17:45 95 08/26/24 17:45 66 08/26/24 17:40 95 08/26/24 17:40 71 08/26/24 17:35 97 08/26/24 17:35 66 08/26/24 17:30 96 08/26/24 17:30 79 08/26/24 17:25 97 08/26/24 17:25 73 08/26/24 17:24 71 08/26/24 17:24 127/68 08/26/24 17:20 97 08/26/24 17:20 79 08/26/24 17:15 94 08/26/24 17:15 89 08/26/24 17:10 96 08/26/24 17:10 69 08/26/24 17:05 98 08/26/24 17:05 74 08/26/24 17:00 95 08/26/24 17:00 79 08/26/24 16:55 96 08/26/24 16:55 73 08/26/24 16:53 78 08/26/24 16:53 143/87 H 08/26/24 16:50 95 08/26/24 16:50 75 08/26/24 16:45 96 08/26/24 16:45 72 08/26/24 16:40 94 08/26/24 16:40 73 08/26/24 16:35 95 08/26/24 16:35 72 08/26/24 16:30 94 08/26/24 16:30 75 08/26/24 16:25 96 08/26/24 16:25 74 08/26/24 16:24 74 08/26/24 16:24 144/83 H 08/26/24 16:20 96 08/26/24 16:20 76 08/26/24 16:15 96 08/26/24 16:15 86 08/26/24 16:10 94 08/26/24 16:10 71 08/26/24 16:05 96 08/26/24 16:05 77 08/26/24 16:00 97 08/26/24 16:00 83 08/26/24 15:55 95 08/26/24 15:55 78 08/26/24 15:54 75 08/26/24 15:54 129/78 08/26/24 15:50 97 08/26/24 15:50 84 08/26/24 15:48 36.9 C 08/26/24 15:45 96 08/26/24 15:45 80 08/26/24 15:40 95 08/26/24 15:40 83 08/26/24 15:35 94 08/26/24 15:35 73 08/26/24 15:30 94 08/26/24 15:30 74 08/26/24 15:25 76 08/26/24 15:25 143/84 H 08/26/24 15:25 93 08/26/24 15:25 74 08/26/24 15:20 95 08/26/24 15:20 75 08/26/24 15:15 97 08/26/24 15:15 84 08/26/24 15:10 97 08/26/24 15:10 85 08/26/24 15:05 97 08/26/24 15:05 80 08/26/24 15:00 20 08/26/24 15:00 20 08/26/24 15:00 96 08/26/24 15:00 82 08/26/24 14:55 95 08/26/24 14:55 90 08/26/24 14:54 76 08/26/24 14:54 130/79 08/26/24 14:54 81 08/26/24 14:54 129/72 08/26/24 14:50 93 08/26/24 14:50 79 08/26/24 14:45 93 08/26/24 14:45 81 08/26/24 14:40 93 08/26/24 14:40 77 08/26/24 14:35 94 08/26/24 14:35 79 08/26/24 14:31 94 08/26/24 14:31 76 08/26/24 14:30 95 08/26/24 14:30 83 08/26/24 14:25 93 08/26/24 14:25 77 08/26/24 14:23 77 08/26/24 14:23 123/69 08/26/24 14:20 95 08/26/24 14:20 84 08/26/24 14:15 94 08/26/24 14:15 77 08/26/24 14:10 94 08/26/24 14:10 77 08/26/24 14:07 94 08/26/24 14:07 78 08/26/24 14:05 96 08/26/24 14:05 75 08/26/24 14:00 94 08/26/24 14:00 71 08/26/24 13:55 94 08/26/24 13:55 79 08/26/24 13:54 93 08/26/24 13:54 78 08/26/24 13:50 95 08/26/24 13:50 72 08/26/24 13:45 97 08/26/24 13:45 76 08/26/24 13:40 94 08/26/24 13:40 80 08/26/24 13:35 93 08/26/24 13:35 79 08/26/24 13:34 94 08/26/24 13:34 74 08/26/24 13:30 95 08/26/24 13:30 78 08/26/24 13:28 94 08/26/24 13:28 79 08/26/24 13:25 97 08/26/24 13:25 77 08/26/24 13:23 78 08/26/24 13:23 133/76 08/26/24 13:20 96 08/26/24 13:20 91 H 08/26/24 13:15 94 08/26/24 13:15 82 08/26/24 13:12 94 08/26/24 13:12 76 08/26/24 13:10 95 08/26/24 13:10 78 08/26/24 13:05 95 08/26/24 13:05 77 08/26/24 13:02 94 08/26/24 13:02 81 08/26/24 13:00 95 08/26/24 13:00 74 08/26/24 12:55 95 08/26/24 12:55 82 08/26/24 12:54 88 08/26/24 12:54 123/83 08/26/24 12:50 96 08/26/24 12:50 80 08/26/24 12:48 94 08/26/24 12:48 92 H 08/26/24 12:45 95 08/26/24 12:45 102 H 08/26/24 12:44 37.1 C 08/26/24 12:40 95 08/26/24 12:40 80 08/26/24 12:37 94 08/26/24 12:37 76 08/26/24 12:35 95 08/26/24 12:35 69 08/26/24 12:31 94 08/26/24 12:31 76 08/26/24 12:30 95 08/26/24 12:30 72 08/26/24 12:25 94 08/26/24 12:25 71 08/26/24 12:25 95 08/26/24 12:25 74 08/26/24 12:23 68 08/26/24 12:23 130/78 08/26/24 12:20 94 08/26/24 12:20 73 08/26/24 12:20 95 08/26/24 12:20 69 08/26/24 12:15 94 08/26/24 12:15 70 08/26/24 12:15 95 08/26/24 12:15 72 08/26/24 12:10 95 08/26/24 12:10 65 08/26/24 12:10 94 08/26/24 12:10 68 08/26/24 12:05 95 08/26/24 12:05 69 08/26/24 12:03 94 08/26/24 12:03 76 08/26/24 12:00 94 08/26/24 12:00 76 08/26/24 11:56 94 08/26/24 11:56 67 08/26/24 11:55 94 08/26/24 11:55 71 08/26/24 11:54 69 08/26/24 11:54 121/78 08/26/24 11:50 94 08/26/24 11:50 70 08/26/24 11:50 95 08/26/24 11:50 72 08/26/24 11:45 94 08/26/24 11:45 73 08/26/24 11:45 95 08/26/24 11:45 70 08/26/24 11:40 94 08/26/24 11:40 69 08/26/24 11:36 94 08/26/24 11:36 64 08/26/24 11:35 95 08/26/24 11:35 70 08/26/24 11:30 94 08/26/24 11:30 69 08/26/24 11:26 94 08/26/24 11:26 68 08/26/24 11:25 95 08/26/24 11:25 70 08/26/24 11:24 67 08/26/24 11:24 130/79 08/26/24 11:20 94 08/26/24 11:20 69 08/26/24 11:19 94 08/26/24 11:19 71 08/26/24 11:15 18 08/26/24 11:15 18 08/26/24 11:15 96 08/26/24 11:15 74 08/26/24 11:10 94 08/26/24 11:10 63 08/26/24 11:10 95 08/26/24 11:10 63 08/26/24 11:05 95 08/26/24 11:05 69 08/26/24 11:00 96 08/26/24 11:00 70 08/26/24 10:57 16 08/26/24 10:57 16 08/26/24 10:57 16 08/26/24 10:57 16 08/26/24 10:55 95 08/26/24 10:55 71 08/26/24 10:54 69 08/26/24 10:54 134/83 08/26/24 10:50 96 08/26/24 10:50 72 08/26/24 10:45 96 08/26/24 10:45 68 08/26/24 10:40 95 08/26/24 10:40 76 08/26/24 10:35 94 08/26/24 10:35 81 08/26/24 10:35 95 08/26/24 10:35 84 08/26/24 10:30 94 08/26/24 10:30 77 08/26/24 10:29 94 08/26/24 10:29 78 08/26/24 10:25 95 08/26/24 10:25 73 08/26/24 10:24 94 08/26/24 10:24 76 08/26/24 10:23 75 08/26/24 10:23 103/65 08/26/24 10:20 95 08/26/24 10:20 72 08/26/24 10:19 94 08/26/24 10:19 80 08/26/24 10:15 94 08/26/24 10:15 77 08/26/24 10:13 94 08/26/24 10:13 74 08/26/24 10:10 95 08/26/24 10:10 76 08/26/24 10:05 95 08/26/24 10:05 80 08/26/24 10:00 95 08/26/24 10:00 74 08/26/24 09:57 94 08/26/24 09:57 75 08/26/24 09:55 95 08/26/24 09:55 76 08/26/24 09:55 115/65 08/26/24 09:50 96 08/26/24 09:50 71 08/26/24 09:45 96 08/26/24 09:45 72 08/26/24 09:42 94 08/26/24 09:42 75 08/26/24 09:40 96 08/26/24 09:40 74 08/26/24 09:35 97 08/26/24 09:35 69 08/26/24 09:30 16 08/26/24 09:30 16 08/26/24 09:30 95 08/26/24 09:30 71 08/26/24 09:27 93 08/26/24 09:27 81 08/26/24 09:25 96 08/26/24 09:25 76 08/26/24 09:25 138/80 08/26/24 09:20 94 08/26/24 09:20 77 08/26/24 09:19 94 08/26/24 09:19 72 08/26/24 09:15 95 08/26/24 09:15 69 08/26/24 09:13 94 08/26/24 09:13 71 08/26/24 09:10 95 08/26/24 09:10 69 08/26/24 09:06 94 08/26/24 09:06 68 08/26/24 09:05 96 08/26/24 09:05 69 08/26/24 09:00 95 08/26/24 09:00 67 08/26/24 08:55 96 08/26/24 08:55 67 08/26/24 08:53 74 08/26/24 08:53 130/84 08/26/24 08:50 97 08/26/24 08:50 76 08/26/24 08:45 98 08/26/24 08:45 69 08/26/24 08:40 96 08/26/24 08:40 74 08/26/24 08:35 97 08/26/24 08:35 76 08/26/24 08:30 96 08/26/24 08:30 80 08/26/24 08:29 94 08/26/24 08:29 75 08/26/24 08:25 74 08/26/24 08:25 122/65 08/26/24 08:25 94 08/26/24 08:25 74 08/26/24 08:22 94 08/26/24 08:22 73 08/26/24 08:20 93 08/26/24 08:20 72 08/26/24 08:15 94 08/26/24 08:15 78 08/26/24 08:10 94 08/26/24 08:10 74 08/26/24 08:09 94 08/26/24 08:09 71 08/26/24 08:05 96 08/26/24 08:05 70 08/26/24 08:00 18 08/26/24 08:00 18 08/26/24 08:00 95 08/26/24 08:00 72 08/26/24 07:55 96 08/26/24 07:55 86 08/26/24 07:53 72 08/26/24 07:53 118/66 08/26/24 07:50 97 08/26/24 07:50 77 08/26/24 07:45 94 08/26/24 07:45 75 08/26/24 07:44 94 08/26/24 07:44 78 08/26/24 07:40 96 08/26/24 07:40 70 08/26/24 07:35 95 08/26/24 07:35 79 08/26/24 07:30 96 08/26/24 07:30 68 08/26/24 07:25 74 08/26/24 07:25 111/68 08/26/24 07:25 96 08/26/24 07:25 69 08/26/24 07:20 97 08/26/24 07:20 72 08/26/24 07:15 96 08/26/24 07:15 75 08/26/24 07:10 96 08/26/24 07:10 71 08/26/24 07:05 95 08/26/24 07:05 85 08/26/24 07:00 18 08/26/24 07:00 18 08/26/24 07:00 95 08/26/24 07:00 69 Pain Intensity Abdomen: Pain Intensity: 1 Transfer of Care Handoff Completed per policy Notes Mental Status: alert / awake / arousable Patient Amnestic to Procedure: Yes Nausea / Vomiting: adequately controlled Pain: adequately controlled Airway Patency, RR, SpO2: stable & adequate BP & HR: stable & adequate Hydration State: stable & adequate Neuraxial Anesthesia: was administered and sensory block is resolving Anesthetic Complications: no major complications apparent
--- NOTE | 2024-08-27 07:17 | Obstetrical Progress Note ---
Date of Service <Krish Foy DO - Last Filed: 08/27/24 07:56> August 27, 2024 Assessment & Plan <Krish Foy DO - Last Filed: 08/27/24 07:56> (1) state: 38yo day 1 s/p Feels well today, vital signs stable Receiving IV fluids Consider removal of vazquez today Continue care Ambulation as tolerated 10min per side every 2-3hrs as tolerated Pain control with ibuprofen Hgb 10 this morning down from 11.2 yesterday Try eating easily digestible foods Interested in going home possibly tomorrow Follow up with Dr. Harrington in 6 weeks. <Alfredo Harrington MD - Last Filed: 08/27/24 09:26> (1) state: Subjective <Krish GarciaDO myra - Last Filed: 08/27/24 07:56> Patient is a 38yo , day 1 s/p after first stage of labor failed to progress. Ambulation: not able to yet due to feeling a bit lightheaded and nauseated when tried to get up, one episode of vomiting, nonbloody nonbilious Voiding: no bowel movements; has vazquez in Passing Gas: hasn't noticed Diet: regular as tolerated, has eaten some crackers Lochia: small Feeding type: intends to breastfeed, has attempted twice but unsure if any milk letdown, baby given formula for now Current pain: mild, 1/10 abdominal pain Resting comfortably this morning, not in acute distress. Denies any headache, fever, chills, chest pain, SOB, n/v/d, lower extremity pain or swelling. Review of Systems as above Physical Exam <Krish Foy DO - Last Filed: 08/27/24 07:56> General: A&Ox4, nontoxic in appearance Skin: healing low-transverse scar, good skin approximation, no bleeding, erythema, swelling, or tenderness; otherwise skin is warm, dry, intact HEENT: NC/AT, anicteric sclerae, conjunctiva w/o injection, moist mucous membranes Heart: +s1/s2, regular rate and rhythm, no m/r/g Lungs: equal air entry b/l, clear to auscultation b/l, no rales/wheezes/rhonchi Abd: healing scar as described above, otherwise uterus firm, mildly tender to palpation, +BS Ext: no swelling, erythema, or tenderness to palpation b/l, Gia's negative; warm, no clubbing or cyanosis Neuro: speech intact, no facial droop, moves all extremities spontaneously and on command Results & Data <Krish Foy DO - Last Filed: 08/27/24 07:56> Vital Signs (Past 12 Hours) Vital Signs Temp Pulse Resp BP BP Pulse Ox O2 Del Method 08/27/24 05:30 36.8 C 16 115/72 94 Room Air 08/27/24 03:00 96 08/27/24 02:00 96 08/27/24 01:00 36.7 C 18 117/73 96 Room Air 08/27/24 01:00 18 96 08/27/24 00:15 36.7 C 16 08/27/24 00:15 74 127/66 08/27/24 00:12 78 95 08/27/24 00:07 78 93 08/27/24 00:02 78 96 08/26/24 23:57 94 08/26/24 23:57 81 08/26/24 23:52 94 08/26/24 23:52 79 08/26/24 23:47 95 08/26/24 23:47 99 H 08/26/24 23:45 36.8 C 16 08/26/24 23:45 90 08/26/24 23:45 137/68 08/26/24 23:42 93 08/26/24 23:42 77 08/26/24 23:37 94 08/26/24 23:37 85 08/26/24 23:32 95 08/26/24 23:32 87 08/26/24 23:27 95 08/26/24 23:27 78 08/26/24 23:22 93 08/26/24 23:22 86 08/26/24 23:17 95 08/26/24 23:17 76 08/26/24 23:15 36.8 C 16 08/26/24 23:15 36.8 C 16 08/26/24 23:15 77 08/26/24 23:15 144/82 H 08/26/24 23:12 92 08/26/24 23:12 78 08/26/24 23:07 93 08/26/24 23:07 79 08/26/24 23:05 37.0 C 16 08/26/24 23:05 80 08/26/24 23:05 122/84 08/26/24 23:02 92 08/26/24 23:02 76 08/26/24 22:57 94 08/26/24 22:57 76 08/26/24 22:55 37.0 C 16 08/26/24 22:55 80 08/26/24 22:55 129/80 08/26/24 22:52 94 08/26/24 22:52 82 08/26/24 22:47 94 08/26/24 22:47 80 08/26/24 22:45 37.0 C 16 08/26/24 22:45 83 08/26/24 22:45 128/78 08/26/24 22:42 93 08/26/24 22:42 82 08/26/24 22:37 93 08/26/24 22:37 83 08/26/24 22:35 37.0 C 16 08/26/24 22:35 79 08/26/24 22:35 119/73 08/26/24 22:32 92 08/26/24 22:32 82 08/26/24 22:27 96 08/26/24 22:27 86 08/26/24 22:25 37.0 C 16 08/26/24 22:25 82 08/26/24 22:25 123/80 08/26/24 22:22 91 08/26/24 22:22 84 08/26/24 22:17 96 08/26/24 22:17 89 08/26/24 22:15 37.0 C 16 08/26/24 22:15 88 08/26/24 22:15 121/79 08/26/24 22:12 93 08/26/24 22:12 88 08/26/24 22:07 94 08/26/24 22:07 91 H 08/26/24 22:06 91 H 08/26/24 22:06 129/78 08/26/24 20:53 88 08/26/24 20:53 137/81 08/26/24 20:50 96 08/26/24 20:50 84 08/26/24 20:45 95 08/26/24 20:45 86 08/26/24 20:40 95 08/26/24 20:40 78 08/26/24 20:35 95 08/26/24 20:35 83 08/26/24 20:30 95 08/26/24 20:30 84 08/26/24 20:25 96 08/26/24 20:25 93 H 08/26/24 20:20 96 08/26/24 20:20 84 08/26/24 20:15 93 08/26/24 20:15 80 08/26/24 20:10 93 08/26/24 20:10 86 08/26/24 20:05 93 08/26/24 20:05 96 H 08/26/24 20:00 94 08/26/24 20:00 97 H 08/26/24 19:55 95 08/26/24 19:55 103 H 08/26/24 19:50 95 08/26/24 19:50 94 H 08/26/24 19:45 94 08/26/24 19:45 93 H 08/26/24 19:40 95 08/26/24 19:40 102 H 08/26/24 19:35 94 08/26/24 19:35 106 H 08/26/24 19:30 95 08/26/24 19:30 118 H 08/26/24 19:25 95 08/26/24 19:25 93 H 08/26/24 19:24 110 H 08/26/24 19:24 114/79 08/26/24 19:20 93 08/26/24 19:20 100 H 08/26/24 19:15 95 08/26/24 19:15 96 H 08/26/24 19:10 37.0 C 16 08/26/24 19:10 16 08/26/24 19:10 37.0 C 16 08/26/24 19:10 96 08/26/24 19:10 86 08/26/24 19:05 96 08/26/24 19:05 71 Supervising Physician <Alfredo Harrington MD - Last Filed: 08/27/24 09:26> Co-Signing Physician Notes Patient seen with resident and agree with the above findings and plan. Routine care Resident Activity Tracking <Krish Foy, DO - Last Filed: 08/27/24 07:56> Resident Involvement: Resident Care Provided Care Provided: OB Delivery
[2024-08-27] MEDS ORDERED: LACTATED RINGER'S 1,000 ML IV SCH (07:30)
[2024-08-27] MEDS: FERROUS SULFATE 325 MG TAB PO SCH (09:06)
[2024-08-27] MEDS: PRENATAL VITAMIN 1 TAB PO SCH (09:06)
[2024-08-27] MEDS: SIMETHICONE 80 MG CHEW PO SCH (09:06)
[2024-08-27] MEDS: DOCUSATE SODIUM 100 MG CAP PO SCH (09:06)
[2024-08-27] MEDS: ONDANSETRON INJ 2 MG/ML 2 ML VIAL IV PRN (13:48)
[2024-08-27] MEDS ORDERED: ONDANSETRON INJ 2 MG/ML 2 ML VIAL IV PRN (15:30)
[2024-08-27] MEDS ORDERED: PROMETHAZINE 12.5 MG/50.5 ML BAG IV PRN (15:30)
[2024-08-27] MEDS ORDERED: oxyCODONE HCL IR 5 MG TAB (IMMEDIATE RELEASE) PO PRN (15:30)
[2024-08-27] MEDS ORDERED: diphenhydrAMINE 50 MG/ML VIAL IV PRN (15:30)
[2024-08-27] MEDS ORDERED: HYDROmorphone INJ 0.5 MG/0.5 ML SYR IV PRN (15:30)
[2024-08-27] MEDS ORDERED: diphenhydrAMINE Capsule 25 MG CAP PO PRN (15:30)
[2024-08-27] MEDS: bisacodyL 5 MG TABEC PO SCH (20:17)
[2024-08-27] MEDS ORDERED: KETOROLAC 30 MG/ML VIAL IV PRN (23:26)
[2024-08-27] MEDS: IBUPROFEN 600 MG TAB PO SCH (23:58)
--- NOTE | 2024-08-28 06:18 | Obstetrical Progress Note ---
Date of Service <Krish Foy DO - Last Filed: 08/28/24 07:36> August 28, 2024 Assessment & Plan <Krish Foy DO - Last Filed: 08/28/24 07:36> (1) state: 38yo day 1 s/p low transverse Feels well today, vital signs stable Receiving IV fluids, PO fluids as tolerated Gomez out Continue care Ambulation as tolerated 10min per side every 2-3hrs as tolerated Pain control with ibuprofen Hgb: 10 yesterday, trend with H&H today Try eating easily digestible foods Interested in going home tomorrow Follow up with Dr. Harrington in 6 weeks. <Bella Soares MD, FACOG - Last Filed: 08/28/24 07:44> (1) state: Subjective <Krish JoeRobb Foy DO - Last Filed: 08/28/24 07:36> 38yo day 3 s/p low transverse Ambulating: more than day prior, has been up to walk around and use bathroom Voiding: urinating, no stool yet Passing gas: yes Diet tolerance: regular Lochia: small Feeding type: breast Current pain: minimal, 1/10 Resting comfortably this AM in NAD. Denies nausea today, hasn't vomited since yesterday after lunch, was able to tolerate dinner. Denies fever, body aches, chills, headache, SOB, LE pain/swelling Review of Systems as above Physical Exam <Krish Foy DO - Last Filed: 08/28/24 07:36> General: A&Ox4, nontoxic in appearance Skin: healing low-transverse scar, good skin approximation, no bleeding, erythema, swelling, or tenderness; otherwise skin is warm, dry, intact HEENT: NC/AT, anicteric sclerae, conjunctiva w/o injection, moist mucous membranes Heart: +s1/s2, regular rate and rhythm, no m/r/g Lungs: equal air entry b/l, clear to auscultation b/l, no rales/wheezes/rhonchi Abd: healing scar as described above, otherwise uterus firm at level of umbilicus and slightly left of midline, not tender to palpation, +BS Ext: no swelling, erythema, or tenderness to palpation b/l, Gia's negative; warm, no clubbing or cyanosis Neuro: speech intact, no facial droop, moves all extremities spontaneously and on command Results & Data <Krish Foy DO - Last Filed: 08/28/24 07:36> Vital Signs (Past 12 Hours) Vital Signs Temp Pulse Resp BP Pulse Ox O2 Del Method 08/28/24 00:00 36.9 C 77 16 108/72 98 Room Air 08/27/24 19:45 36.6 C 76 112/75 98 Room Air Laboratory Results Abnormal lab results 08/27/24 Range/Units 06:18 Hgb 10.0 L (12.0-16.0) g/dl Hct 30.0 L (37.0-47.0) % Supervising Physician <Bella Soares MD, FACOG - Last Filed: 08/28/24 07:44> Co-Signing Physician Notes Resident Physician Supervision Note: I interviewed and examined the patient. Discussed with Dr. Thayer and agree with findings and plan as documented in the note. Any exceptions or clarifications are listed here: Doing well, PPD 2. continue routine care. Documented By: Bella Soares MD, FACOG Resident Activity Tracking <Krish Foy DO - Last Filed: 08/28/24 07:36> Resident Involvement: Resident Care Provided Care Provided: OB Delivery
[2024-08-28 07:54] LABS: Hematocrit (blood only) 26.1 % (37.0-47.0); Hemoglobin 8.7 g/dl (12.0-16.0)
[2024-08-28] MEDS: INFLUENZA VACC TS2024-25(6m+)/PF (IIV3) 0.5mL Syr IM ONE (08:28)
[2024-08-28 08:48] VITALS: RESP 20
[2024-08-28] MEDS ORDERED: bisacodyL 10 MG SUPP PR PRN (23:26)
[2024-08-28] MEDS: IBUPROFEN 600 MG TAB PO PRN (23:57)
--- NOTE | 2024-08-29 06:36 | Obstetrical Progress Note ---
Date of Service <Krish DiazRobb Foy DO - Last Filed: 08/29/24 08:15> August 29, 2024 Assessment & Plan <Krish DiazRobb Foy DO - Last Filed: 08/29/24 08:15> (1) state: 38yo day 3 s/p low transverse Feels well today, vital signs stable PO fluids as tolerated Gomez out Continue care Ambulation as tolerated 10min per side every 2-3hrs as tolerated Pain control with ibuprofen Hgb: 8.7 yesterday, down from 10 yesterday - ordered H&H for today - patient to take ferrous sulfate upon discharge Continue eating as tolerated Interested in going home today Follow up with Dr. Harrington in 6 weeks. <Curt Marcum MD, FACOG - Last Filed: 08/30/24 10:10> (1) state: Subjective <Krish GarciaDO myra - Last Filed: 08/29/24 08:15> Patient is a 38yo day 3 s/p low-transverse . Ambulation: yes Voiding: yes, BMx2 Passing gas: yes Diet tolerance: regular Lochia: small Feeding type: breast, bottle supplementation when necessary Current pain: minimal Resting comfortably this AM in NAD Denies fever, body aches, chills, headache, SOB, abdominal pain, LE pain/swelling, LE numbness/tingling. Review of Systems As above Physical Exam <Kirsh DiazRobb LawDO myra - Last Filed: 08/29/24 08:15> General: A&Ox4, nontoxic in appearance Skin: healing low-transverse scar, good skin approximation, no bleeding, erythema, swelling; mild tenderness in shower; otherwise skin is warm, dry, intact HEENT: NC/AT, anicteric sclerae, conjunctiva w/o injection, moist mucous membranes Heart: +s1/s2, regular rate and rhythm, no m/r/g Lungs: equal air entry b/l, clear to auscultation b/l, no rales/wheezes/rhonchi Abd: healing scar as described above, otherwise uterus firm at level of umbilicus and slightly left of midline, not tender to palpation, +BS Ext: no swelling, erythema, or tenderness to palpation b/l, Gia's negative; warm, no clubbing or cyanosis Neuro: speech intact, no facial droop, moves all extremities spontaneously and on command Results & Data <Krish Foy DO - Last Filed: 08/29/24 08:15> Vital Signs (Past 12 Hours) Vital Signs Temp Pulse Resp BP Pulse Ox O2 Del Method 08/28/24 23:55 36.7 C 72 20 120/74 98 Room Air 08/28/24 20:00 36.8 C 73 20 121/76 99 Room Air Supervising Physician <Curt Marcum MD, FACOG - Last Filed: 08/30/24 10:10> Co-Signing Physician Notes Resident Physician Supervision Note: I was present with Dr. Thayer during the history and exam. I discussed the case with the resident and agree with the findings and plan as documented in the note. Any exceptions or clarifications are listed here: [None] Documented By: Curt Marcum MD, FACOG Resident Activity Tracking <Krish Foy DO - Last Filed: 08/29/24 08:15> Resident Involvement: Resident Care Provided Care Provided: OB Delivery
[2024-08-29] MEDS: ACETAMINOPHEN 325 MG TAB PO PRN (08:31)
[2024-08-29 08:50] LABS: Hematocrit (blood only) 26.8 % (37.0-47.0)
[2024-08-29 10:07] VITALS: BP 105/71; PULSE 76; TEMP 97.9; O2SAT 100
--- NOTE | 2024-08-30 11:35 | Discharge Summary ---
Date of Service August 30, 2024 Admission HPI Per Admitting Provider 38yo @ 40 12/20, came to L&D after rupture of membranes around 11pm. Scant blood. + movement. Occasional contractions. AMA Weekly NST's @ 36 weeks Low Lying Placenta *Re-assess at 32wks * resolved at 32 weeks Staphylococcus on GBS culture-treat with Cephalexin Discharge Data Consultations 08/26/24 01:02 Consult Anesthesiology Stat Procedures Performed Operation Date: 08/26/24 20:25 Actual Procedures p Section in LD - Alrfedo Harrington MD Hospital Course (1) S/P section: Primary for failure to progress performed without complication. Remained in house for 3 days without any postdelivery complications arising. Discharged home in stable condition with both written and verbal discharge instructions. Coding Level of Care Code None Diagnoses S/P section Z98.891
== END 2024-08-29 15:33 | disposition home or self-care (01) | DRG 788 ==
LOC: OPB 00:08 → 4S1 00:10 → 4E2 08-27 00:46

== ENCOUNTER 2024-11-26 16:07 | Observation (INO) ==
[2024-11-26 16:53] LABS: Basophils # (auto) 0.03 K/uL (0.00-0.20); Basophils % (auto) 0.3 %; Eosinophils # (auto) 0.06 K/uL (0.00-0.50); Eosinophils % (auto) 0.6 %; Hematocrit (blood only) 40.1 % (37.0-47.0); Hemoglobin 13.6 g/dl (12.0-16.0); Immature Granulocytes # (auto) 0.04 K/uL (0.01-0.20); Immature Granulocytes % (auto) 0.4 %; Lymphocytes # (auto) 1.43 K/uL (1.20-3.40); Lymphocytes % (auto) 13.4 %; Mean Corpuscular Hemoglobin 30.8 pg (25.0-34.0); Mean Corpuscular Hgb Conc 33.9 g/dL (32.0-36.0); Mean Corpuscular Volume 90.7 fL (80.0-100.0); Mean Platelet Volume 9.8 fL (9.4-12.4); Monocytes # (auto) 0.48 K/uL (0.11-0.59); Monocytes % (auto) 4.5 %; Neutrophils # (auto) 8.61 K/uL (1.40-6.50); Neutrophils % (auto) 80.8 %; Platelet Count 230 K/uL (130-400); RDW Coefficient of Variation 12.9 % (11.5-14.5); RDW Standard Deviation 42.5 fL (36.4-46.3); Red Blood Count 4.42 M/uL (4.20-5.40); White Blood Count 10.65 K/ul (4.8-10.8)
[2024-11-26 17:00] LABS: Pregnancy Test, Serum Negative (Negative)
[2024-11-26 17:02] LABS: Albumin Globulin Ratio 1.6 (0.9-2); Albumin Level 4.7 gm/dl (3.4-5.0); BUN Creatinine Ratio 39.1 (10-20); Bilirubin,Total 0.4 mg/dl (0.2-1.0); Calcium 9.5 mg/dl (8.6-10.3); Creatinine Clr Calc Pharmacy 115.6 ml/min; Globulin 2.9 gm/dl (2.5-4.0); Potassium 3.9 mmol/L (3.5-5.1); Total Protein 7.6 gm/dl (6.0-8.3)
[2024-11-26] MEDS: ONDANSETRON INJ 2 MG/ML 2 ML VIAL IV STA (18:21)
[2024-11-26] MEDS: MoRPHine SULFATE 2 MG/ML CARP IV STA (18:22)
--- NOTE | 2024-11-26 19:16 | Emergency Department Note ---
History of Present Illness General Chief Complaint: Abdominal Pain Stated Complaint: ABD PAIN, NEED TESTING, SENT BY [facility] Time Seen by Provider: 11/26/24 17:30 History of Present Illness Provider Complaint: abdominal pain Onset (ago): 1 day(s) Pain Consistency: intermittent Location: LLQ Radiation: none Severity: moderate Maximum Pain Intensity: 8 Current Pain Intensity: 8 Quality: + stabbing and + sharp Relieved By: + nothing Exacerbated By: + nothing Context: no foreign travel, no possible food poisoning, no sick contacts, no recent antibiotic use, no recent surgery/procedure or no recent injury Associated Symptoms: no nausea, no vomiting, no diarrhea, no fever, no chills, no constipation, no dysuria, no hematemesis, no hematochezia, no melena, no hematuria, no headache, no chest pain and no breathing difficulty Related Data Gestational Age Based on EDC: 40 Wks 3 D Home Medications Medication Instructions Recorded Confirmed Type vits no.124-ferrous fum 1 tab PO DAILY 08/26/24 10/03/24 History 27 mg iron-folic acid 800 mcg tablet ( Vitamin) ibuprofen 600 mg tablet 600 mg PO Q8H PRN pain #20 tabs 08/29/24 10/03/24 Rx Allergies Allergy/AdvReac Type Severity Reaction Status Date / Time No Known Allergies Allergy Verified 10/03/24 10:07 Past Med/Surg History Problem List (Updated 11/26/24 @ 20:37 by Kobi Woodward MD) Acute appendicitis (Acute) S/P section state Low lying placenta without hemorrhage, antepartum Upper airway cough syndrome Cough variant asthma Routine gynecological examination Medical History Failure to progress in first stage of labor Encounter for pre-operative examination Elderly primigravida Acid reflux Dermatitis Surgical History H/O wisdom tooth extraction Family History Mother Pre-diabetes Denies family history of Ovarian cancer Prostate cancer Myocardial infarction Breast cancer Colorectal cancer Social History Smoking Status: Never smoker Second Hand Exposure: No; Do You Dip or Chew Tobacco: No; Hx Alcohol Use: No Hx Substance Use: No Preferred Language: Maldivian Communication Ability: Effective 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 Beliefs That Will Affect Care: None marital status: marital status details: Sammi (39) [phone] Current Living Situation: Spouse Current Living Situation Comment: lives with spouse, cats-spouse changing litter current occupational status: employed current occupation: professor [employer] How many Children do You have: 0 Feels Safe at Home: Yes Childhood Exposure to Second-Hand Smoke: Yes Diet: lactose free caffeine: Yes Dental Care, Regularly: Yes Physical Activity Frequency: 1-2 Times per Week Seatbelt Use: always Sunscreen Use: Yes Physical Exam 2 Vital Signs: Vital Signs - 24 hr 11/26/24 16:19 11/26/24 19:36 Temperature 36.5 C Temperature Source Temporal Artery Sc an Pulse Rate 84 Pulse Rate [Finger ] 74 Respiratory Rate 19 16 Blood Pressure 99/65 L Blood Pressure [Le ft Arm] 98/57 L Blood Pressure Mariel n 76 Blood Pressure Mariel n [Left Arm] 70 Blood Pressure Pos ition [Left Arm] Semi-fowlers Pulse Oximetry 97 99 Oxygen Delivery Me thod Room Air Room Air Sepsis Recent Feve r Within 48 Hours No Sepsis New/Unexpla ined Change in Men kevin Status N/A Sepsis Action Take n by Nursing No Action Required Physical Exam: Physical Exam GENERAL: oriented to person, place, and time. appears well-developed and well- nourished. She does not appear distressed. HENT: Exam performed. -Head: Normocephalic and atraumatic. -Right Ear: External ear normal. No mastoid erythema -Left Ear: External ear normal. No mastoid erythema -Mouth/Throat: The oropharynx is clear and moist. No trismus in the jaw. No dental abscesses or uvula swelling. No oropharyngeal exudate or tonsillar abscesses. EYES: Conjunctivae and EOM are normal.Right eye exhibits no discharge. Left eye exhibits no discharge. No scleral icterus. NECK: Normal range of motion. Neck supple. No JVD present. No tracheal deviation and normal range of motion present. CV: Normal rate, regular rhythm, normal heart sounds and intact distal pulses. There is no peripheral edema. Palpable radial pulses bue. PULM/CHEST: Effort normal and breath sounds normal. No respiratory distress. No stridor. no wheezes.no rales. -Chest Wall: no tenderness to palpation ABD: The abdomen is soft. Bowel sounds are normal. no distension. No mass is present. There is tenderness to palpation of the right lower quadrant. There is no rebound, no guarding, no Rivas's sign and Rovsig negative MUSC/SKEL: Normal range of motion. There is no peripheral edema, tenderness or deformity. NEURO: Motor and sensation grossly intact. SKIN: Skin is warm and dry. not diaphoretic. PSYCH: normal mood and affect. Behavior is normal. Judgment and thought content normal. Course Course 1729: The patient was evaluated in room C5. A complete history and physical exam was performed Cardiac monitoring: An order was placed for continuous cardiac monitoring. The monitor shows a rate of 80 with sinus rhythm interpreted by or 2034: Vital signs stable. Labs within normal limits. Imaging shows appendicitis. Rocephin and Flagyl ordered for the patient. Discussed case with Dr. Donovan on-call general surgery who states he will be down to evaluate the patient. Administered Medications Discontinued Medications Ioversol (Optiray 320 100ml) 90 ml IV ONCE ONE Stop: 11/26/24 20:00 Last Admin: 11/26/24 19:59 Dose: 90 ml Documented By: CHRISTIE Morphine Sulfate (Morphine Sulfate 2 Mg/Ml Carp) 2 mg IV NOW STA Stop: 11/26/24 17:45 Last Admin: 11/26/24 18:22 Dose: 2 mg Documented By: CEF Ondansetron HCl (Ondansetron Inj 2 Mg/Ml 2 Ml Vial) 4 mg IV NOW STA Stop: 11/26/24 17:45 Last Admin: 11/26/24 18:21 Dose: 4 mg Documented By: CEF Medical Decision Making Laboratory Data Attestation: I reviewed the patient's lab results. 11/26/24 16:28 11/26/24 16:28 Lab Results 11/26/24 11/26/24 Range/Units 16:28 19:02 WBC 10.65 (4.8-10.8) K/ul RBC 4.42 (4.20-5.40) M/uL Hgb 13.6 (12.0-16.0) g/dl Hct 40.1 (37.0-47.0) % MCV 90.7 (80.0-100.0) fL MCH 30.8 (25.0-34.0) pg MCHC 33.9 (32.0-36.0) g/dL RDW Std Deviation 42.5 (36.4-46.3) fL RDW Coeff of Natacha 12.9 (11.5-14.5) % Plt Count 230 (130-400) K/uL MPV 9.8 (9.4-12.4) fL Immature Gran % (Auto) 0.4 % Neut % (Auto) 80.8 % Lymph % (Auto) 13.4 % Preston % (Auto) 4.5 % Eos % (Auto) 0.6 % Baso % (Auto) 0.3 % Neut # (Auto) 8.61 H (1.40-6.50) K/uL Lymph # (Auto) 1.43 (1.20-3.40) K/uL Preston # (Auto) 0.48 (0.11-0.59) K/uL Eos # (Auto) 0.06 (0.00-0.50) K/uL Baso # (Auto) 0.03 (0.00-0.20) K/uL Immature Gran # (Auto) 0.04 (0.01-0.20) K/uL Sodium 140 (136-145) mmol/L Potassium 3.9 (3.5-5.1) mmol/L Chloride 108 H (98-107) mmol/L Carbon Dioxide 25 (21-32) mmol/L Anion Gap 7 (3-11) BUN 18 (6-23) mg/dl Creatinine 0.46 L (0.6-1.2) mg/dl Est Cr Clr Drug Dosing 115.6 ml/min eGFR 124.76 BUN/Creatinine Ratio 39.1 H (10-20) Glucose 98 (70-99(Fasting)) mg/dl Calcium 9.5 (8.6-10.3) mg/dl Total Bilirubin 0.4 (0.2-1.0) mg/dl AST 17 (13-39) U/L ALT 13 (7-52) U/L Alkaline Phosphatase 62 (34-104) U/L Total Protein 7.6 (6.0-8.3) gm/dl Albumin 4.7 (3.4-5.0) gm/dl Globulin 2.9 (2.5-4.0) gm/dl Albumin/Globulin Ratio 1.6 (0.9-2) Lipase 33 (11-82) U/L HCG, Qual Negative (Negative) Urine Color Yellow Urine Appearance Clear (Clear) Urine pH 5.5 (4.5-7.5) Ur Specific Mcclure 1.027 (1.000-1.030) Urine Protein Negative (Negative) Urine Glucose (UA) Negative (Negative) Urine Ketones 2+ H (Negative) Urine Blood Negative (Negative) Urine Nitrite Negative (Negative) Urine Bilirubin Negative (Negative) Urine Urobilinogen Negative (Negative) Ur Leukocyte Esterase Negative (Negative) Imaging Data Radiologist's Impression: Abdomen/Pelvis CT 11/26/24 17:43 CR Exam(s): CT ABDOMEN + PELVIS With Contrast IV Amt: 90 ml optiray 320 EXAM: CT Abdomen and Pelvis With Intravenous Contrast CLINICAL HISTORY: Reason for exam: Right lower quadrant pain. Evaluate for appendicitis. TECHNIQUE: Axial computed tomography images of the abdomen and pelvis with intravenous contrast. CTDI is 6.53 mGy and DLP is 272.87 mGy-cm. Automated exposure control was utilized for the study. A dose lowering technique was utilized adhering to the principles of ALARA. CONTRAST: Patient received 90 ml optiray 320 of IV contrast COMPARISON: No relevant prior studies available. FINDINGS: Lung bases: Unremarkable. No mass. No consolidation. ABDOMEN: Liver: Unremarkable. No mass. Gallbladder and bile ducts: Unremarkable. No calcified stones. No ductal dilation. Pancreas: Unremarkable. No mass. No ductal dilation. Spleen: Unremarkable. No splenomegaly. Adrenals: Unremarkable. No mass. Kidneys and ureters: Unremarkable. No solid mass. No hydronephrosis. Stomach and bowel: Unremarkable. No obstruction. No mucosal thickening. PELVIS: Appendix: The appendix is located medial to the cecum and measures 11 mm short axis diameter which is slightly dilated. There is wall thickening and questionable slight surrounding fat stranding suggesting early acute appendicitis. No signs of rupture or abscess. Bladder: Unremarkable. No mass. Reproductive: Unremarkable as visualized. ABDOMEN and PELVIS: Intraperitoneal space: Unremarkable. No free air. No significant fluid collection. Bones/joints: No acute fracture. No dislocation. Soft tissues: Unremarkable. Vasculature: Unremarkable. No abdominal aortic aneurysm. Lymph nodes: Unremarkable. No enlarged lymph nodes. IMPRESSION: The appendix is located medial to the cecum and measures 11 mm short axis diameter which is slightly dilated. There is wall thickening and questionable slight surrounding fat stranding suggesting early acute appendicitis. No signs of rupture or abscess. Communications: Call Doctor Appendicitis Electronically signed by: Kenney Gonzalez MD 11/26/24 20:27 PM [facility] Narrative 1730: The patient was evaluated in room C5. A complete history and physical exam was performed Cardiac monitoring: An order was placed for continuous cardiac monitoring. The monitor shows a rate of 80 with sinus rhythm interpreted by me 2035: Vital signs stable. Labs within normal limits. Imaging shows appendicitis. Rocephin and Flagyl ordered for the patient. Discussed case with Dr. Donovan on-call general surgery who states he will be down to evaluate the patient. Impression & Plan Acute appendicitis Discharge Plan Visit Data Chief Complaint: Abdominal Pain Stated Complaint: ABD PAIN, NEED TESTING[facility] Provider: Kobi Woodward Discharge Problem: Acute appendicitis Patient Disposition: Being Evaluated by Surgeon Forms Stand Alone Forms: Tervela Prescriptions Prescriptions: No Action Vitamin 27 mg iron- 800 mcg Tablet 1 tab PO DAILY ibuprofen 600 mg tablet 600 mg PO Q8H PRN (Reason: pain) Qty: 20 0RF Referrals Referrals: Charly Vernon [Primary Care Provider] - Discharge Problem: Acute appendicitis Qualifiers: Acute appendicitis type: unspecified acute appendicitis type Qualified Code(s): K35.80 - Unspecified acute appendicitis
[2024-11-26 19:19] LABS: Appearance Urine Clear (Clear); Bilirubin Urine Negative (Negative); Blood Urine Negative (Negative); Color Urine Yellow; Glucose Urine UA Negative (Negative); Ketones Urine 2+ (Negative); Leukocyte Esterase Urine Negative (Negative); Nitrite Urine Negative (Negative); Protein Urine Negative (Negative); Specific Gravity Urine 1.027 (1.000-1.030); Urobilinogen Urine Negative (Negative); pH Urine 5.5 (4.5-7.5)
[2024-11-26] MEDS: OPTIRAY 320 100ml IV ONE (19:59)
--- NOTE | 2024-11-26 20:28 | CT Scan Report ---
Exam(s): CT ABDOMEN + PELVIS With Contrast IV Amt: 90 ml optiray 320 EXAM: CT Abdomen and Pelvis With Intravenous Contrast CLINICAL HISTORY: Reason for exam: Right lower quadrant pain. Evaluate for appendicitis. TECHNIQUE: Axial computed tomography images of the abdomen and pelvis with intravenous contrast. CTDI is 6.53 mGy and DLP is 272.87 mGy-cm. Automated exposure control was utilized for the study. A dose lowering technique was utilized adhering to the principles of ALARA. CONTRAST: Patient received 90 ml optiray 320 of IV contrast COMPARISON: No relevant prior studies available. FINDINGS: Lung bases: Unremarkable. No mass. No consolidation. ABDOMEN: Liver: Unremarkable. No mass. Gallbladder and bile ducts: Unremarkable. No calcified stones. No ductal dilation. Pancreas: Unremarkable. No mass. No ductal dilation. Spleen: Unremarkable. No splenomegaly. Adrenals: Unremarkable. No mass. Kidneys and ureters: Unremarkable. No solid mass. No hydronephrosis. Stomach and bowel: Unremarkable. No obstruction. No mucosal thickening. PELVIS: Appendix: The appendix is located medial to the cecum and measures 11 mm short axis diameter which is slightly dilated. There is wall thickening and questionable slight surrounding fat stranding suggesting early acute appendicitis. No signs of rupture or abscess. Bladder: Unremarkable. No mass. Reproductive: Unremarkable as visualized. ABDOMEN and PELVIS: Intraperitoneal space: Unremarkable. No free air. No significant fluid collection. Bones/joints: No acute fracture. No dislocation. Soft tissues: Unremarkable. Vasculature: Unremarkable. No abdominal aortic aneurysm. Lymph nodes: Unremarkable. No enlarged lymph nodes. IMPRESSION: The appendix is located medial to the cecum and measures 11 mm short axis diameter which is slightly dilated. There is wall thickening and questionable slight surrounding fat stranding suggesting early acute appendicitis. No signs of rupture or abscess. Communications: Call Doctor Appendicitis Electronically signed by: Kenney Gonzalez MD 11/26/24 20:27 PM
[2024-11-26] MEDS: cefTRIAXone SODIUM 2,000 MG/50 ML BAG IV STA (20:41)
[2024-11-26] MEDS: metroNIDAZOLE 500 MG/100 ML BAG IV STA (21:03)
[2024-11-26] MEDS ORDERED: ROCURONIUM BROMIDE 10 MG/ML 5 ML VIAL IV ONE (21:08)
[2024-11-26] MEDS ORDERED: PROPOFOL IV EMULSION 10 MG/ML 20 ML VIAL IV ONE (21:09)
[2024-11-26] MEDS ORDERED: MIDAZOLAM HCL 1 MG/ML 2ML VIAL ONE (21:09)
[2024-11-26] MEDS ORDERED: fentaNYL citrate PF 100 MCG/2 ML VIAL ONE (21:09)
[2024-11-26] MEDS ORDERED: DEXAMETHASONE SOD INJ 4 MG/ML VIAL ONE (21:09)
[2024-11-26] MEDS ORDERED: ONDANSETRON INJ 2 MG/ML 2 ML VIAL ONE (21:09)
[2024-11-26] MEDS ORDERED: LIDOCAINE 2% 2 ML VIAL/AMP(20MG/ML) INFIL ONE (21:09)
--- NOTE | 2024-11-26 21:17 | Anesthesiology Consultation ---
Date of Service November 26, 2024 Assessment & Plan (1) Encounter for pre-operative examination: Chart Review Chart Review: Acceptable Risk for Surgery History Surgery Operation Date: 11/26/24 20:45 Proposed Procedures p Laparoscopic Appendectomy - Masoud Donovan MD Height/Weight Height: 5 ft Weight: 44.6 kg Allergies Allergy/AdvReac Type Severity Reaction Status Date / Time No Known Allergies Allergy Verified 10/03/24 10:07 Medications Home Medications Medication Instructions Recorded Confirmed Last Taken vits no.124-ferrous fum 1 tab PO DAILY 08/26/24 10/03/24 Unknown 27 mg iron-folic acid 800 mcg tablet ( Vitamin) ibuprofen 600 mg tablet 600 mg PO Q8H PRN pain #20 tabs 08/29/24 10/03/24 Unknown Active Medications Generic Name Dose Route Start Last Admin Trade Name Freq PRN Reason Stop Dose Admin Metronidazole 500 mg in 100 mls @ 100 mls/hr 11/26/24 20:28 11/26/24 21:03 Flagyl IV 11/26/24 21:27 100 mls/hr NOW STA Administration Past Medical History Medical History (Updated 11/26/24 @ 21:16 by Ayo Gupta MD) Acid reflux Dermatitis Past Family History Family History Mother Pre-diabetes Denies family history of Ovarian cancer Prostate cancer Myocardial infarction Breast cancer Colorectal cancer Past Surgical History Surgical History (Updated 11/26/24 @ 21:16 by Ayo Gupta MD) S/P section H/O wisdom tooth extraction Social History Smoking Status: Never smoker Do You Dip or Chew Tobacco: No Hx Alcohol Use: No Hx Substance Use: No Physical Exam Vital Signs Last Vital Signs Temp 36.5 C 11/26/24 16:19 Pulse 68 11/26/24 21:05 Resp 16 11/26/24 21:05 BP 93/68 L 11/26/24 21:05 Pulse Ox 99 11/26/24 21:05 O2 Del Method Room Air 11/26/24 21:05 Testing Laboratory Results 11/26/24 16:28 11/26/24 16:28 Urine Color Yellow 11/26/24 19:02 Urine Appearance Clear (Clear) 11/26/24 19:02 Urine pH 5.5 (4.5-7.5) 11/26/24 19:02 Ur Specific Leonard 1.027 (1.000-1.030) 11/26/24 19:02 Urine Protein Negative (Negative) 11/26/24 19:02 Urine Glucose (UA) Negative (Negative) 11/26/24 19:02 Urine Ketones 2+ (Negative) H 11/26/24 19:02 Urine Nitrite Negative (Negative) 11/26/24 19:02 Ur Leukocyte Esterase Negative (Negative) 11/26/24 19:02
--- NOTE | 2024-11-26 21:21 | History & Physical Report ---
Date of Service November 26, 2024 Assessment & Plan (1) Acute appendicitis: Plan: IVF IV abx to OR for lap appendectomy Acute appendicitis type: unspecified acute appendicitis type Qualified Code(s): K35.80 - Unspecified acute appendicitis History of Present Illness Primary Care Provider: Charly Vernon This is a 38-year-old female comes in complaining of 1 day of abdominal pain. This began mainly right-sided. Associated with nausea. She denies fevers or chills. The pain has steadily worsened in severity since it began. A CT scan shows early acute appendicitis. Allergies Allergy/AdvReac Type Severity Reaction Status Date / Time No Known Allergies Allergy Verified 11/26/24 21:19 Home Medications Medication Instructions Recorded Confirmed Type vits no.124-ferrous fum 1 tab PO DAILY 08/26/24 11/26/24 History 27 mg iron-folic acid 800 mcg tablet ( Vitamin) Past Med/Surg History Problem List (Updated 11/26/24 @ 21:16 by Ayo Gupta MD) Elderly primigravida Failure to progress in first stage of labor Encounter for pre-operative examination Acute appendicitis (Acute) state Low lying placenta without hemorrhage, antepartum Upper airway cough syndrome Cough variant asthma Routine gynecological examination Medical History (Updated 11/26/24 @ 21:16 by Ayo Gupta MD) Acid reflux Dermatitis Surgical History (Updated 11/26/24 @ 21:16 by Ayo Gupta MD) S/P section H/O wisdom tooth extraction Family History Mother Pre-diabetes Denies family history of Ovarian cancer Prostate cancer Myocardial infarction Breast cancer Colorectal cancer Social History Smoking Status: Never smoker Second Hand Exposure: No; Do You Dip or Chew Tobacco: No; Hx Alcohol Use: No Hx Substance Use: No Preferred Language: Occitan Communication Ability: Effective 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 Beliefs That Will Affect Care: None marital status: marital status details: Sammi (39) [phone] Current Living Situation: Spouse Current Living Situation Comment: lives with spouse, cats-spouse changing litter current occupational status: employed current occupation: professor [employer] How many Children do You have: 0 Feels Safe at Home: Yes Childhood Exposure to Second-Hand Smoke: Yes Diet: lactose free caffeine: Yes Dental Care, Regularly: Yes Physical Activity Frequency: 1-2 Times per Week Seatbelt Use: always Sunscreen Use: Yes Review of Systems no fever and no chills no problem reported no problem reported + pain on inspiration; no cough and no dyspnea no chest pain + abdominal pain and + nausea; no vomiting and no change in bowel habits no dysuria no back pain no problem reported no localized weakness and no generalized weakness no behavioral changes no easy bleeding and no easy bruising Physical Exam Constitutional: WD/WN, vitals as above Eyes: PERRL, conjunctivae normal, anicteric sclerae ENMT: external ear and nose normal, oropharynx normal Neck: trachea midline abrasions to neck Respiratory: normal respiratory effort, lungs clear to auscultation Cardiovascular: RRR, no murmur, no edema Gastrointestinal (Abdomen): Inspection/Auscultation: abdomen normal to inspe ction and normal bowel sounds; abdomen not distended Percussion/Palpation: + abdomen tender, + guarding and abdomen soft; abdomen not rigid Musculoskeletal: Head/Neck/Chest: normocephalic and head atraumatic Skin: no rashes, warm and dry Results & Data Vital Signs (Past 12 Hours) Vital Signs Temp Pulse Pulse Resp BP BP Pulse Ox 11/26/24 21:05 68 16 93/68 L 99 11/26/24 19:36 74 16 98/57 L 99 11/26/24 16:19 36.5 C 84 19 99/65 L 97 O2 Del Method 11/26/24 21:05 Room Air 11/26/24 19:36 Room Air 11/26/24 16:19 Room Air Diagnostic Findings EXAM: CT Abdomen and Pelvis With Intravenous Contrast CLINICAL HISTORY: Reason for exam: Right lower quadrant pain. Evaluate for appendicitis. TECHNIQUE: Axial computed tomography images of the abdomen and pelvis with intravenous contrast. CTDI is 6.53 mGy and DLP is 272.87 mGy-cm. Automated exposure control was utilized for the study. A dose lowering technique was utilized adhering to the principles of ALARA. CONTRAST: Patient received 90 ml optiray 320 of IV contrast COMPARISON: No relevant prior studies available. FINDINGS: Lung bases: Unremarkable. No mass. No consolidation. ABDOMEN: Liver: Unremarkable. No mass. Gallbladder and bile ducts: Unremarkable. No calcified stones. No ductal dilation. Pancreas: Unremarkable. No mass. No ductal dilation. Spleen: Unremarkable. No splenomegaly. Adrenals: Unremarkable. No mass. Kidneys and ureters: Unremarkable. No solid mass. No hydronephrosis. Stomach and bowel: Unremarkable. No obstruction. No mucosal thickening. PELVIS: Appendix: The appendix is located medial to the cecum and measures 11 mm short axis diameter which is slightly dilated. There is wall thickening and questionable slight surrounding fat stranding suggesting early acute appendicitis. No signs of rupture or abscess. Bladder: Unremarkable. No mass. Reproductive: Unremarkable as visualized. ABDOMEN and PELVIS: Intraperitoneal space: Unremarkable. No free air. No significant fluid collection. Bones/joints: No acute fracture. No dislocation. Soft tissues: Unremarkable. Vasculature: Unremarkable. No abdominal aortic aneurysm. Lymph nodes: Unremarkable. No enlarged lymph nodes. IMPRESSION: The appendix is located medial to the cecum and measures 11 mm short axis diameter which is slightly dilated. There is wall thickening and questionable slight surrounding fat stranding suggesting early acute appendicitis. No signs of rupture or abscess.
[2024-11-26] MEDS ORDERED: KETOROLAC 30 MG/ML VIAL IV PRN (21:34)
[2024-11-26] MEDS ORDERED: PROMETHAZINE HCL 6.25 MG in SODIUM CHLORIDE 0.9% 50 ML IV PRN (21:34)
[2024-11-26] MEDS ORDERED: ATROPINE SULFATE 0.1 MG/ML 10ML SYR IV PRN (21:34)
[2024-11-26] MEDS ORDERED: SUCCINYLCHOLINE 100MG/5ML SYR IV ONE (21:44)
[2024-11-26] MEDS ORDERED: KETOROLAC 30 MG/ML VIAL ONE (22:03)
[2024-11-26] MEDS ORDERED: SUGAMMADEX SODIUM 200 MG/2 ML VIAL IV ONE ×2 (22:03→22:18)
[2024-11-26] MEDS: BUPIVACAINE/EPINEPHRINE 0.5% MPF 1:200,000 30 ML VIAL ONE (22:11)
[2024-11-26] MEDS ORDERED: ACETAMINOPHEN 325 MG TAB PO PRN (22:24)
[2024-11-26] MEDS ORDERED: MoRPHine SULFATE 2 MG/ML CARP IV PRN (22:24)
[2024-11-26] MEDS ORDERED: oxyCODONE/ACETAMINOPHEN 5mg/325mg TAB PO PRN ×2 (22:24)
[2024-11-26] MEDS ORDERED: ALUMINUM/MAGNESIUM SUSP 30 ML UDC PO PRN (22:24)
[2024-11-26] MEDS ORDERED: MoRPHine SULFATE 4 MG/ML 1 ML CARP\\VIAL IV PRN (22:24)
[2024-11-26] MEDS ORDERED: IBUPROFEN 200 MG TAB PO PRN (22:24)
--- NOTE | 2024-11-26 22:24 | Operative Report ---
Post Operative Report Pre & Post Diagnosis Operation Date: 11/26/24 20:45 Acute appendicitis I identified the patient and participated in the time-out.: Yes Procedure Operation Date: 11/26/24 20:45 Laparoscopic appendectomy Surgeon Masoud Donovan MD Mercury Recoverer none Estimated Blood Loss 10 Findings Consistent with Post-Op Diagnosis Acute appendicitis Specimens Appendix to pathology Drains none Anesthesia Type General Complications none Disposition Accompanied Patient To Recovery: No Description of Procedure The patient was taken to the OR and underwent excellent general anesthesia. Their abdomen was prepped and draped in normal sterile fashion. A transverse supraumbilical incision was made, towel clamps were used to create tension on the abdominal wall as a Veress needle was inserted gently into the peritoneal cavity. Good pneumoperitoneum was achieved to about 15 mmHg pressure. Once this was done, a visualized 11 port was placed in the supraumbilical position. A 12 mm left lower quadrant port , a 5mm suprapubic port , and a 5mm right upper quadrant port were all placed in normal fashion. Patient was then placed in head down and rolled to the left. A good diagnostic lap was performed. They had obvious acute appendicitis. The cecum was grasped with an atraumatic grasper. A grasper was then was then used to grasp the tip of the appendix. The mesoappendix was splayed open and a harmonic scalpel was used to take down the mesoappendix. The base of the appendix was identified and an Endo BEAR stapler was used to transect the appendix at its base. A endobag was then inserted through the left lower quadrant port and the appendix was placed into the bag, The bag was removed through the left lower quadrant port. The appendix was sent for pathologic evaluation. The pneumoperitoneum was re- established after the 12 mm port was replaced. Saline was then used to irrigate the abdomen. There was no active bleeding nor any other abnormalities noted in the abdomen. The patient was then placed back in neutral position, the ports were removed and the pneumoperitoneum decompressed. The 12mm port fascia was then closed using a 0 Vicryl. The skin was then anesthetized with 0.5% Marcaine with epinephrine local. Interrupted Vicryl is used to close the skin. Dermabond was used to reinforce the incisions. Sterile dressings were applied. The patient tolerated procedure without complications was sent to the postop recovery period of observation. They will be sent to the floor for the rest of their care. I attest to the content of the Intraoperative Record and any orders documented therein. Any exceptions are noted below.
[2024-11-26] MEDS ORDERED: FLUMAZENIL 0.1 MG/1 ML 10 ML VIAL IV ONE (22:32)
[2024-11-26] MEDS: fentaNYL citrate PF 100 MCG/2 ML VIAL IV PRN (22:35)
--- NOTE | 2024-11-26 22:57 | Anesthesiology Progress Note ---
Date of Service November 26, 2024 Anesthesia Post Procedure Vital Signs Vital Signs: Temp Pulse Pulse Pulse Resp BP BP 11/26/24 22:55 78 17 118/78 11/26/24 22:45 90 16 116/74 11/26/24 22:35 103 H 16 120/73 11/26/24 22:28 36.1 C L 102 H 20 124/80 11/26/24 21:05 68 16 93/68 L 11/26/24 19:36 74 16 98/57 L 11/26/24 16:19 36.5 C 84 19 99/65 L Pulse Ox O2 Del Method O2 Flow Rate 11/26/24 22:55 93 Room Air 11/26/24 22:45 93 Room Air 11/26/24 22:35 92 Room Air 11/26/24 22:28 96 Oxymask 5 11/26/24 21:05 99 Room Air 11/26/24 19:36 99 Room Air 11/26/24 16:19 97 Room Air Transfer of Care Handoff Completed per policy Notes Mental Status: alert / awake / arousable Patient Amnestic to Procedure: Yes Nausea / Vomiting: adequately controlled Pain: adequately controlled Airway Patency, RR, SpO2: stable & adequate BP & HR: stable & adequate Hydration State: stable & adequate Anesthetic Complications: no major complications apparent
[2024-11-26] MEDS: ONDANSETRON INJ 2 MG/ML 2 ML VIAL IV PRN (23:08)
[2024-11-26] MEDS: SODIUM CHLORIDE 0.9% 500 ML IV SCH (23:35)
[2024-11-27 06:26] VITALS: RESP 18
[2024-11-27] MEDS: cefTRIAXone SODIUM 1,000 MG/50 ML BAG IV SCH (08:01)
[2024-11-27] MEDS: ONDANSETRON INJ 2 MG/ML 2 ML VIAL IV PRN (08:09)
[2024-11-27] MEDS: SODIUM CHLORIDE 0.9% 500 ML IV ONE (08:48)
[2024-11-27] MEDS ORDERED: IBUPROFEN 600 MG TAB PO PRN (09:14)
[2024-11-27] MEDS ORDERED: ACETAMINOPHEN 325 MG TAB PO PRN (09:14)
--- NOTE | 2024-11-27 09:30 | Surgery Progress Note ---
Date of Service November 27, 2024 Assessment & Plan (1) Acute appendicitis: Plan: POD # 1 s/p lap appendectomy afebrile hypotensive with dizziness this am, hemodynamically stable, no tachycardia , ?orthostatic minimal postop pain urinating Plan: 500 cc bolus of NSS see if she responds PO Tylenol and Ibuprofen prn pain advance diet as tolerated, encouraged water intake OOB to chair with assistance if BP responds hopeful discharge this afternoon/evening Dr. Tobias has seen and examined patient, agrees with above. Will give 1 liter bolus as BP still low encourage oral intake reg diet Admission and Anticipated Discharge Date Admission Date: November 26, 2024 Subjective feeling dizzy this morning since 5 am, dizziness when sitting up, okay when lying down BP runs a little low but near normal values no chest pain, SOB, increase in abdominal pain No narcotics as she is trying to avoid as she is 3 months and pumping not drinking much water Physical Exam Constitutional: WD/WN, vitals as above cooperative and comfortable; no acu te distress, not ill appearing, not in distress and not diaphoretic Respiratory: normal respiratory effort, lungs clear to auscultation Cardiovascular: RRR, no murmur, no edema Gastrointestinal (Abdomen): Inspection/Auscultation: abdomen normal to inspection, + abdominal surgical scar (c section scar) and + abdominal surgical incision (laparoscopic incisions c/d/i, ); abdomen not distended Percussion/Palpation: + abdomen tender (mild at incision sites) and abdomen soft; no guarding, abdomen not rigid and abdomen not firm Skin: no rashes, warm and dry no pallor Psychiatric: Orientation: alert and oriented x 3 Results & Data Vital Signs (Past 12 Hours) Vital Signs Temp Pulse Pulse Resp BP BP Pulse Ox 11/27/24 09:24 74 93/53 L 11/27/24 06:36 36.7 C 93/52 L 11/27/24 06:25 36.1 C L 81 18 91/50 L 95 11/27/24 02:20 36.7 C 80 16 98/65 L 96 11/27/24 01:19 36.8 C 78 16 94/65 L 94 11/27/24 00:18 36.7 C 76 17 110/74 92 11/26/24 23:50 36.3 C L 72 18 104/70 92 11/26/24 23:22 36.5 C 99 H 18 160/97 H 97 11/26/24 22:55 78 17 118/78 93 11/26/24 22:45 90 16 116/74 93 11/26/24 22:35 103 H 16 120/73 92 11/26/24 22:28 36.1 C L 102 H 20 124/80 96 O2 Del Method O2 Flow Rate 11/27/24 09:24 11/27/24 06:36 11/27/24 06:25 Room Air 11/27/24 02:20 Room Air 11/27/24 01:19 Room Air 11/27/24 00:18 Room Air 11/26/24 23:50 Room Air 11/26/24 23:22 Room Air 11/26/24 22:55 Room Air 11/26/24 22:45 Room Air 11/26/24 22:35 Room Air 11/26/24 22:28 Oxymask 5 Laboratory Results 11/26/24 11/26/24 Range/Units 19:02 16:28 WBC 10.65 (4.8-10.8) K/ul RBC 4.42 (4.20-5.40) M/uL Hgb 13.6 (12.0-16.0) g/dl Hct 40.1 (37.0-47.0) % MCV 90.7 (80.0-100.0) fL MCH 30.8 (25.0-34.0) pg MCHC 33.9 (32.0-36.0) g/dL RDW Std Deviation 42.5 (36.4-46.3) fL RDW Coeff of Natacha 12.9 (11.5-14.5) % Plt Count 230 (130-400) K/uL MPV 9.8 (9.4-12.4) fL Immature Gran % (Auto) 0.4 % Neut % (Auto) 80.8 % Lymph % (Auto) 13.4 % Burke % (Auto) 4.5 % Eos % (Auto) 0.6 % Baso % (Auto) 0.3 % Neut # (Auto) 8.61 H (1.40-6.50) K/uL Lymph # (Auto) 1.43 (1.20-3.40) K/uL Burke # (Auto) 0.48 (0.11-0.59) K/uL Eos # (Auto) 0.06 (0.00-0.50) K/uL Baso # (Auto) 0.03 (0.00-0.20) K/uL Immature Gran # (Auto) 0.04 (0.01-0.20) K/uL Sodium 140 (136-145) mmol/L Potassium 3.9 (3.5-5.1) mmol/L Chloride 108 H (98-107) mmol/L Carbon Dioxide 25 (21-32) mmol/L Anion Gap 7 (3-11) BUN 18 (6-23) mg/dl Creatinine 0.46 L (0.6-1.2) mg/dl Est Cr Clr Drug Dosing 115.6 ml/min eGFR 124.76 BUN/Creatinine Ratio 39.1 H (10-20) Glucose 98 (70-99(Fasting)) mg/dl Calcium 9.5 (8.6-10.3) mg/dl Total Bilirubin 0.4 (0.2-1.0) mg/dl AST 17 (13-39) U/L ALT 13 (7-52) U/L Alkaline Phosphatase 62 (34-104) U/L Total Protein 7.6 (6.0-8.3) gm/dl Albumin 4.7 (3.4-5.0) gm/dl Globulin 2.9 (2.5-4.0) gm/dl Albumin/Globulin Ratio 1.6 (0.9-2) Lipase 33 (11-82) U/L HCG, Qual Negative (Negative) Urine Color Yellow Urine Appearance Clear (Clear) Urine pH 5.5 (4.5-7.5) Ur Specific [place] 1.027 (1.000-1.030) Urine Protein Negative (Negative) Urine Glucose (UA) Negative (Negative) Urine Ketones 2+ H (Negative) Urine Blood Negative (Negative) Urine Nitrite Negative (Negative) Urine Bilirubin Negative (Negative) Urine Urobilinogen Negative (Negative) Ur Leukocyte Esterase Negative (Negative) (1) Acute appendicitis Acute appendicitis type: unspecified acute appendicitis type Qualified Code(s): K35.80 - Unspecified acute appendicitis
[2024-11-27 11:21] VITALS: TEMP 98.2; O2SAT 97
[2024-11-27] MEDS: SODIUM CHLORIDE 0.9% 1,000 ML IV ONE (11:57)
[2024-11-27 13:00] VITALS: BP 91/53; PULSE 82
[2024-11-27] MEDS: INFLUENZA VACC TS2024-25(6m+)/PF (IIV3) 0.5mL Syr IM ONE (15:28)
--- NOTE | 2024-11-28 15:27 | Discharge Summary ---
Date of Service November 28, 2024 Admission HPI Per Admitting Provider This is a 38-year-old female comes in complaining of 1 day of abdominal pain. This began mainly right-sided. Associated with nausea. She denies fevers or chills. The pain has steadily worsened in severity since it began. A CT scan shows early acute appendicitis. Principal Diagnosis Acute appendicitis Discharge Data Allergies Allergy/AdvReac Type Severity Reaction Status Date / Time No Known Allergies Allergy Verified 11/26/24 21:19 Consultations 11/26/24 20:29 ED Decision to Admit Stat Procedures Performed Operation Date: 11/26/24 20:45 Actual Procedures p Laparoscopic Appendectomy(Not Applicable) - Masoud Donovan MD Ordered Studies 11/26/24 17:43 CT abd pelvis oral and IV con Stat Hospital Course (1) Acute appendicitis: Patient was taken to operating room for laparoscopic appendectomy on 11/26/2024. Patient found to have acute appendicitis without perforation or abscess. Patient tolerated procedure without difficulty and was transferred to recovery then to medical/surgical floor for postoperative care. Diet advanced to clear liquids, activity as tolerated, pain management and antiemetics as needed. Patients blood pressure was low at 90/50 and patient was symptomatic with dizziness upon position changes. However not tachycardic and no other symptoms. 500 cc bolus of NS was given without changes as well as 1 liter. Patient felt better after fluids and advancing diet to regular food. Prior baseline blood pressure per chart around 100-110/60. Patient was encouraged to ambulate hallway and if tolerated without dizziness she could be discharged home if pain controlled. Patient tolerated ambulating hallway with nursing staff and was discharged home in the evening on POD # 1 in stable condition. Total Time Total Time Spent Total Time Spent (In Minutes): 60 minutes Total Time Includes: Examination of the Patient, Discharge Planning, Medication Reconciliation and Communication With Other Providers Discharge Plan Discharge Items Patient Disposition: Home - Self-Care Reason For Visit: APPENDICITIS Discharge Diagnosis: acute appendicitis Activity: Per Instructions section Non-emergency contact: Primary Care Provider and Surgeon Call non-emergency contact if: you have any medication questions, your pain is not controlled, you have a fever, your temperature is above 101, your wound has increased redness, your wound has increased drainage and your wound pain has increased Follow-up/Referrals: Masoud Donovan MD [Physician] - Charly Vernon [Primary Care Provider] - Diet: Regular Addtl Attending Provider Instructions: Post-Surgical ~Discharge Instructions Activity Recommendations: - Lifting limitation: (20 pounds for 3-4 weeks), - Exercise/sex/sports limit: (nonstrenuous for 2 weeks), - Driving or machine use limit: (none after 3 days post-op as long as pain free and no longer taking narcotic pain medication), - Shower/bathe limit: (may shower tomorrow,, no submerging incisions underwater for 2 weeks) - Call the surgeon's office with any questions or concerns - ; ex. temperature higher than 101.5 degrees F, excessive bleeding or pain Diet: - Resume previous diet, regular as tolerated. Medications: - Resume previous medications unless instructed otherwise by your surgeon. - May alternate extra strength Tylenol and Ibuprofen as needed for mild to moderate pain - Tylenol 650 mg every 6 hours as needed - Ibuprofen 600 mg every 6 hours as needed, take with food Follow-up: - If not already scheduled, please call the office to schedule a two week follow-up appointment. Office number Pending Studies at Discharge: Yes (appendix pathology, will be reviewed at postop visit) Stand-Alone Forms: [facility] Medications and DC Order Prescriptions: Continued Vitamin 27 mg iron- 800 mcg Tablet 1 tab PO DAILY docosahexaenoic acid 200 mg Capsule 200 mg PO DAILY Discharge Orders: Discharge Order (Routine); Ordered 11/27/24 Ordered By: Leeann Sapp/Other Patient Handouts: Appendectomy Admission Data Admit Date/Time: 11/26/24 22:24 Attending Provider: Masoud Donovan Admit Provider: Masoud Donovan Primary Care Provider: Charly Vernon Other Providers: Masoud Donovan Other Interventions: Discharge Summary Assessment (RN) Last Done: 11/27/24 14:39
== END 2024-11-27 16:39 | disposition home or self-care (01) ==
LOC: ED 16:07 → 3E 21:11 → OR 21:11
DX: K35.80 Unspecified acute appendicitis